=== PATIENT | male | born 1940 | race Caucasian/White ===

== ENCOUNTER 2021-05-04 17:07 | Inpatient (IN) | payer MEDICAID ==
[~2021-05-04] VITALS: Ht 165.1 cm; Wt 79.4 kg
--- NOTE | 2021-05-04 | NUR ---
MEAT CUTTER NOTES, A5 2345 RECEIVED 80 YEAR OLD MALE ADMITTED FROM ER DEPARTMENT, CODE STROKE IN ER DONE FOR THE PATIENT, PATIENT A/O X4 MONGOLIAN SPEAKING, ON 2LPM VIA NC WITH O2 96 % AT THIS TIME, NO SOB/ACUTE DISTRESS NOTED, PT ADMITTED UNDER MEDICALS SERVICES OF DR MINAL VAZQUEZ, WITH ADMITTING DX STROKE, WITH H/O OF STROKE PER PT 10 YEARS AGO, ON ER DOCUMENTATION STATES 5 YEARS AGO, NSR IN TELE MONITOR WITH HR 80S AT THIS TIME, PATIENT AFEBRILE, NO WEAKNESS NOTED, SLIGHTLY DROPPING IN RIGHT SIDE OF SMILE, PATIENT STATED BIANCA RIGHT LEG IS NUMB AFTER THE PRIOR STROKE, NO RESIDUAL NOTED, I DID NOT AMBULATE PATIENT BUT DID NEUROLOGICAL ASSESSMENT ASSESSMENT IN BED, SKIN INTACT, PATIENT AFEBRILE, WILL CONTINUE TO MONITOR CLOSELY AND DO NEUROLOGICAL CHECKS ORDERED, CALL LIGHT W/I REACH, BED LOCKED AND LOWEST POSITION, ORIENTED PAT TO ROOM AND SURROUNDINGS, EDUCATED TO USE THE CALL LIGHT FOR ASSISTANCE. Addendum: 05/05/21 at 0044 by ZULEMA STANFORD RN WRONG TIME ENTRY
--- NOTE | 2021-05-04 17:11 | NUR ---
TO ER BED 9, [id number] FRM HOME, FOUND IN THE GROUND, C/O R SIDED WEAKNESS. LKW 1200, AAOX3, BREATHING EVEN AND NON LABORED, CONNECTED TO MONITOR, MD AT BEDSIDE FOR EVAL
--- NOTE | 2021-05-04 17:20 | NUR ---
CALLED CODE STROKE
[2021-05-04] MEDS ORDERED: IOHEXOL-350 100 ML VIAL IV ONE (17:21)
[2021-05-04] MEDS ORDERED: IV NS 0.9% 250 ML IV ONE (17:23)
--- NOTE | 2021-05-04 17:26 | NUR ---
CALLED [phone] TELE [facility] TELE NEURO IS DR. MARTINEZ
--- NOTE | 2021-05-04 17:27 | NUR ---
TAKEN TO CT
[2021-05-04] MEDS ORDERED: CLOP75TA15 PO (17:33)
[2021-05-04] MEDS ORDERED: GLIP10TA11 PO (17:33)
[2021-05-04] MEDS ORDERED: CHOL200010 PO (17:33)
[2021-05-04] MEDS ORDERED: TAMS-12 PO (17:33)
[2021-05-04] MEDS ORDERED: METF-442 PO (17:33)
[2021-05-04] MEDS ORDERED: ATOR80TA PO (17:33)
--- NOTE | 2021-05-04 17:35 | NUR ---
DR LAW GO ON PHONE CALL WITH DR. MARTINEZ NEUROLOGY MD
--- NOTE | 2021-05-04 17:46 | NUR ---
COVID SWAB DONE AND SENT TO LAB
--- NOTE | 2021-05-04 18:22 | NUR ---
BROOKE SON [phone]. CALL FOR ANY UPDATE ALSO EMERGENCY CONTACT. SON STATES PT. HAS A HISTORY OF STROKE (5-6 YEARS AGO). PT IS DIABETIC. PT. INCONTINENT. [phone] ABHIJIT DAUGHTER.
[2021-05-04 18:33] LABS: BASOPHILS % (AUTO) 0.2 % (0.0-2.0); EOSINOPHILS % (AUTO) 0.1 % (0.0-6.0); HEMATOCRIT 45 % (39-51); HEMOGLOBIN 15.7 g/dL (13.5-17.5); LYMPHOCYTES # (AUTO) 0.6 K/uL (0.8-4.8); LYMPHOCYTES % (AUTO) 12.5 % (20.0-44.0); MEAN CORPUSCULAR HGB CONC 35 g/dl (31.0-36.0); MEAN CORPUSCULAR VOLUME 97 fL (80-96); MONOCYTES # (AUTO) 0.6 K/uL (0.1-1.30); MONOCYTES % (AUTO) 12.3 % (2.0-12.0); NEUTROPHILS # (AUTO) 3.4 K/uL (1.8-8.9); NEUTROPHILS % (AUTO) 74.9 % (43.0-81.0); PLATELET COUNT (AUTO) 89 K/uL (150-450); RED BLOOD CELL COUNT(AUTO) 4.69 MIL/uL (4.5-6.0); WHITE BLOOD COUNT (AUTO) 4.5 K/uL (4.3-11.0)
[2021-05-04 18:37] LABS: LYMPHOCYTES % (MANUAL) 15 % (16-48); MONOCYTES % (MANUAL) 15 % (0-11.0); NEUTROPHILS % (MANUAL) 70 (42-76)
[2021-05-04 18:43] LABS: CALCIUM, SERUM 8.1 mg/dL (8.5-10.1); CARBON DIOXIDE 24 mmol/L (21-32); CHLORIDE 98 mmol/L (98-107); CREATININE 1.1 mg/dL (0.6-1.3); GLUCOSE 228 mg/dL (74-106); POTASSIUM 3.8 mmol/L (3.5-5.1); SODIUM SERUM 133 mmol/L (136-145); UREA NITROGEN, BLOOD 19 mg/dL (7-18)
[2021-05-04] MEDS ORDERED: ASPIRIN 325 MG TABLET PO ONE (19:00)
[2021-05-04] MEDS ORDERED: ASPIRIN 325 MG TABLET ONE (19:07)
--- NOTE | 2021-05-04 22:37 | NUR ---
ASSIGNED TO 117-2
--- NOTE | 2021-05-04 23:05 | NUR ---
REPORT GIVEN TO DANK POOLE
[2021-05-05] VITALS: BP 159/85
--- NOTE | 2021-05-05 | NUR ---
SQUIRREL WORKER NOTES, A5 2345 RECEIVED 80 YEAR OLD MALE ADMITTED FROM ER DEPARTMENT, CODE STROKE IN ER DONE FOR THE PATIENT, PATIENT A/O X4 CYMRAES SPEAKING, ON 2LPM VIA NC WITH O2 96 % AT THIS TIME, NO SOB/ACUTE DISTRESS NOTED, PT ADMITTED UNDER MEDICALS SERVICES OF DR MINAL VAZQUEZ, WITH ADMITTING DX STROKE, WITH H/O OF STROKE PER PT 10 YEARS AGO, ON ER DOCUMENTATION STATES 5 YEARS AGO, NSR IN TELE MONITOR WITH HR 80S AT THIS TIME, PATIENT AFEBRILE, NO WEAKNESS NOTED, SLIGHTLY DROPPING IN RIGHT SIDE OF SMILE, PATIENT STATED BIANCA RIGHT LEG IS NUMB AFTER THE PRIOR STROKE, NO RESIDUAL NOTED, I DID NOT AMBULATE PATIENT BUT DID NEUROLOGICAL ASSESSMENT ASSESSMENT IN BED, SKIN INTACT, PATIENT AFEBRILE, WILL CONTINUE TO MONITOR CLOSELY AND DO NEUROLOGICAL CHECKS ORDERED, CALL LIGHT W/I REACH, BED LOCKED AND LOWEST POSITION, ORIENTED PAT TO ROOM AND SURROUNDINGS, EDUCATED TO USE THE CALL LIGHT FOR ASSISTANCE.
--- NOTE | 2021-05-05 00:02 | NUR ---
PATIENT TRANSFERRED TO [facility]
--- NOTE | 2021-05-05 00:29 | NUR ---
RN NOTES, ASKED MINAL FLIGHT TECHNICIAN THAT PER ER DR NOTES, PERMISSIVE HYPERTENSION IS ALLOW WELL PATIENT NPO TILL SWALLOW EVALUATION DONE, IF SHE WANTS TO CONTINUE THIS AND WHAT PARAMETERS FOR BP SHE WANTS, SHE REPLIED WITH ORDERS TO CONT PT IN CARDIAC DIET AFTER SWALLOW EVALUATION AT BEDSIDE NOW, AND PARAMETER FOR SBP CAN GO UP TO 180, NOTED AND CARRIED OUT, INFORMED HER THAT PT IS DIABETIC TOO AND REPLIED WITH ORDER FOR RISS ACHS MODERATE, ALL ORDERS NOTED AND CARRIED OUT.
[2021-05-05] MEDS ORDERED: DEXTROSE 50%-WATER 50 ML DISP.SYRIN IV PRN (01:00)
[2021-05-05] MEDS: ENOXAPARIN SODIUM 40 MG/0.4 ML DISP.SYRIN SQ SCH ×2 (01:16→21:16)
[2021-05-05] MEDS: BLOOD SUGAR DIAGNOSTIC 1 EACH STRIP VI SCH ×5 (02:04→21:17)
[2021-05-05] MEDS: *INSULIN REGULAR(HUMULIN R)HUM 100 UNIT/ML VIAL SQ PRN ×2 (02:06→21:32)
--- NOTE | 2021-05-05 06:03 | NUR ---
TEXTED DR. MIX FOR MRI APPROVAL.
--- NOTE | 2021-05-05 07:03 | NUR ---
PT SLEEPING AT THIS TIME, A/O X4 , NO CHANGE IN LOC DURING THE REST OF MY SHIFT, NO NEUROLOGICAL DEFICITS NOTED, NO CHANGE IN CONDITION DURING MY SHIFTY, ON 2LPM VIA NC WITH , NO SOB/ACUTE DISTRESS NOTED, NSR IN TELE MONITOR WITH HR 80S AT THIS TIME, PATIENT AFEBRILE, CALL LIGHT W/I REACH, BED LOCKED AND LOWEST POSITION, WILL ENDORSE CONTINUITY OF CARE TO ONCOMING NURSE.
--- NOTE | 2021-05-05 07:30 | NUR ---
GRADES 1 THROUGH 6 TEACHER OPENING NOTES RECEIVED PATIENT ON BED AWAKE AND A/O X4. ON O2 AT 4LPM VIA NASAL CANNULA TOLERATING WELL. NO SOB NOTED. NOT IN DISTRESS. WITH NO COMPLAINTS OF PAIN OR DISCOMFORT AT THIS TIME. ON TELE MONITOR CURRENTLY READING SINUS RHYTHM AT 91BPM. WITH IV ACCESS AT LEFT HAND G20 AND AT RIGHT HAND G18 SALINE LOCKED, PATENT AND INTACT. SAFETY MEASURES IN PLACED. ON DROPLET PRECAUTION. CALL LIGHT WITHIN REACH. BED ON LOWEST LOCKED POSITION, SIDE RAILS UP X2. WILL CONTINUE TO MONITOR.
[2021-05-05 07:31] LABS: BASOPHILS % (AUTO) 0.2 % (0.0-2.0); EOSINOPHILS % (AUTO) 0.1 % (0.0-6.0); HEMATOCRIT 45 % (39-51); HEMOGLOBIN 15.6 g/dL (13.5-17.5); LYMPHOCYTES # (AUTO) 0.6 K/uL (0.8-4.8); LYMPHOCYTES % (AUTO) 15.5 % (20.0-44.0); MEAN CORPUSCULAR HGB CONC 35 g/dl (31.0-36.0); MEAN CORPUSCULAR VOLUME 96 fL (80-96); MONOCYTES # (AUTO) 0.5 K/uL (0.1-1.30); MONOCYTES % (AUTO) 11.1 % (2.0-12.0); NEUTROPHILS # (AUTO) 3.1 K/uL (1.8-8.9); NEUTROPHILS % (AUTO) 73.1 % (43.0-81.0); PLATELET COUNT (AUTO) 84 K/uL (150-450); RED BLOOD CELL COUNT(AUTO) 4.69 MIL/uL (4.5-6.0); WHITE BLOOD COUNT (AUTO) 4.2 K/uL (4.3-11.0)
[2021-05-05 07:51] LABS: CALCIUM, SERUM 8.1 mg/dL (8.5-10.1); POTASSIUM 3.7 mmol/L (3.5-5.1)
[2021-05-05] MEDS ORDERED: ASPIRIN EC 325 MG TABLET.DR PO SCH (09:00)
--- NOTE | 2021-05-05 09:00 | NUR ---
MRI APPROVED, SWITCHING OPERATOR NOTIFIED
[2021-05-05] MEDS: PANTOPRAZOLE 40 MG TABLET.DR PO SCH (09:55)
[2021-05-05] MEDS: INSULIN REGULAR, HUMAN 100 UNIT/ML 3 ML VIAL SQ PRN ×3 (10:40→18:36)
--- NOTE | 2021-05-05 11:14 | NUR ---
SS Consult: SS consult for CVA. Pt. Is a 80-year-old male. Pt. is Tajik speaking, CARLOS nurse translated. Pt. demonstrates adequate insight to the reason for hospitalization. Per pt., he was brought to hospital by ambulance due to generalized weakness. Pt. was oriented x3, alert, and cooperative. During interview, pt. was capable of following directions, made appropriate eye-contact, and appeared groomed. Pt.s speech was at a normal rate. Pt.s mood was elevated. JOSE MANUEL explored pt.s hx of mental health and substance abuse. Pt. reported no hx of mental health, substance abuse, suicidal or homicidal ideation. Pt. denies auditory hallucinations, visual hallucinations, paranoia, or delusions. SW explored pt.s living situation. Per pt., he lives with his daughter [[id number] [place] [address]]. Per pt., his daughter works most of the time and can care for him when she is at home. Pt. stated that he feels supported by his daughter. JOSE MANUEL explored pt.s ADLs and DMEs. Pt. was independent with his ADLs and was ambulatory before he was hospitalized. Pt. stated that the last time he had a stroke was about 10 years ago, pt. has hx of strokes. Per pt., he was at home and started to feel weakness in his right leg and fell. His daughter found him on the floor and called the ambulance. Pt. stated he has pain on his right side hip. Plan: JOSE MANUEL provided available resources and pt. accepted. SW screen pt. with the PHQ9 and he scored a 3 [none-minimal]. A psych consult is not needed. Resources Provided: Stroke Empowerment
[2021-05-05 12:18] LABS: CHOLESTEROL 110 mg/dL (<200); HDL CHOLESTEROL 34 mg/dL (40-60); LDL 65 mg/dL (0-99); TRIGLYCERIDES 81 mg/dL (30-150)
[2021-05-05 13:49] LABS: ALBUMIN 3.3 g/dL (3.4-5.0); BILIRUBIN,DIRECT 0.4 mg/dL (0.0-0.2); BILIRUBIN,TOTAL 0.9 mg/dL (0.2-1.0); TOTAL PROTEIN, SERUM 6.3 g/dL (6.4-8.2)
[2021-05-05] MEDS: DEXAMETHASONE SOD PHOSPHATE 10 MG/ML VIAL IV SCH (15:54)
[2021-05-05] MEDS: CLOPIDOGREL BISULFATE 75 MG TABLET PO SCH (15:55)
[2021-05-05] MEDS ORDERED: GADOTERATE MEGLUMINE 5 MMOL/10 ML VIAL IV ONE (18:31)
--- NOTE | 2021-05-05 19:00 | NUR ---
SOLOIST DANCER CLOSING NOTES PATIENT ON BED AWAKE AND A/O X4. ON O2 AT 4LPM VIA NASAL CANNULA TOLERATING WELL. NO SOB NOTED. NOT IN DISTRESS. WITH NO COMPLAINTS OF PAIN OR DISCOMFORT AT THIS TIME. ON TELE MONITOR CURRENTLY READING SINUS RHYTHM AT 91BPM. WITH IV ACCESS AT LEFT HAND G20 AND AT RIGHT HAND G18 SALINE LOCKED, PATENT AND INTACT. SAFETY MEASURES IN PLACED. ON DROPLET PRECAUTION. CALL LIGHT WITHIN REACH. BED ON LOWEST LOCKED POSITION, SIDE RAILS UP X2. WILL ENDORSE TO NEXT SHIFT FOR VERENA.
--- NOTE | 2021-05-05 19:55 | NUR ---
GROUND SUPPORT EQUIPMENT FITTER OPENING NOTES PATIENT ON BED AWAKE AND A/O X4. MOHAWK SPEAKING. ON O2 AT 4LPM VIA NASAL CANNULA TOLERATING WELL. NO SOB NOTED. NOT IN DISTRESS. WITH NO COMPLAINTS OF PAIN OR DISCOMFORT AT THIS TIME. ON TELE MONITOR SINUS RHYTHM AT 89. WITH IV ACCESS AT LEFT HAND G20 AND AT RIGHT HAND G18 SALINE LOCKED, PATENT AND INTACT. SAFETY MEASURES IN PLACED. AND ALL ISOLATION PRECAUTIONS TAKEN. CALL LIGHT WITHIN REACH. BED ON LOWEST LOCKED POSITION, SIDE RAILS UP X2.
[2021-05-05 20:00] VITALS: BP 132/68
--- NOTE | 2021-05-05 20:32 | NUR ---
TOOLMAKER GRADE THREE NOTE CONTACTED FOR PATIENTS FEVER OF 99.2. ORDERED TYLENOL 600MG PO Q6 PRN. ORDER NOTED AND FOLLOWED.
[2021-05-05] MEDS ORDERED: ACETAMINOPHEN 325 MG TABLET PO PRN (21:00)
--- NOTE | 2021-05-05 21:34 | NUR ---
bs 365 - 10 units per sliding scale
[2021-05-06] VITALS: BP 120/72
[2021-05-06 04:00] VITALS: BP 156/91
--- NOTE | 2021-05-06 06:20 | NUR ---
RN NOTE PATIENT REMAINED IN STABLE CONDITION OVER NIGHT, NEURO ASSESSMENTS DONE ORDERED. ALL MEDICATIONS GIVEN ORDERED. PATIENT HAS BEEN NPO SINCE MIDNIGHT DUE TO US OF ABDOMEN THAT IS SCHEDULED IN THE MORNING PER DOCTORS ORDERS.BED LOCKED, ENVIRONMENTAL SAFETY MEASURES ENFORCED, CALL LIGHT WITHIN REACH. WILL ENDORSE PLAN OF CARE TO AM NURSE.
[2021-05-06 08:00] VITALS: BP 127/79
[2021-05-06 08:07] LABS: IMMUNOGLOBULIN A, SERUM 270 mg/dL (61-437); IMMUNOGLOBULIN G, SERUM 797 mg/dL (603-1613); IMMUNOGLOBULIN M, SERUM 59 mg/dL (15-143)
[2021-05-06 08:17] LABS: BASOPHILS % (AUTO) 0.1 % (0.0-2.0); HEMATOCRIT 46 % (39-51); HEMOGLOBIN 16.3 g/dL (13.5-17.5); LYMPHOCYTES # (AUTO) 0.6 K/uL (0.8-4.8); LYMPHOCYTES % (AUTO) 14.4 % (20.0-44.0); MEAN CORPUSCULAR HGB CONC 35 g/dl (31.0-36.0); MEAN CORPUSCULAR VOLUME 96 fL (80-96); MONOCYTES # (AUTO) 0.5 K/uL (0.1-1.30); MONOCYTES % (AUTO) 11.5 % (2.0-12.0); NEUTROPHILS # (AUTO) 2.9 K/uL (1.8-8.9); PLATELET COUNT (AUTO) 86 K/uL (150-450); RED BLOOD CELL COUNT(AUTO) 4.82 MIL/uL (4.5-6.0); WHITE BLOOD COUNT (AUTO) 3.9 K/uL (4.3-11.0)
[2021-05-06] MEDS: PANTOPRAZOLE 40 MG TABLET.DR PO SCH (08:27)
[2021-05-06] MEDS: DEXAMETHASONE SOD PHOSPHATE 10 MG/ML VIAL IV SCH (08:27)
[2021-05-06] MEDS: BLOOD SUGAR DIAGNOSTIC 1 EACH STRIP VI SCH ×4 (08:29→21:46)
[2021-05-06] MEDS: CLOPIDOGREL BISULFATE 75 MG TABLET PO SCH (08:29)
[2021-05-06 08:40] LABS: CALCIUM, SERUM 8.7 mg/dL (8.5-10.1); MAGNESIUM 2.3 mg/dL (1.8-2.4); PHOSPHORUS 3.8 mg/dL (2.5-4.9); POTASSIUM 3.9 mmol/L (3.5-5.1)
[2021-05-06 10:01] LABS: LYMPHOCYTES % (MANUAL) 10 % (16-48); MONOCYTES % (MANUAL) 20 % (0-11.0); NEUTROPHILS % (MANUAL) 70 (42-76)
[2021-05-06 12:00] VITALS: BP 127/79
[2021-05-06] MEDS: INSULIN REGULAR, HUMAN 100 UNIT/ML 3 ML VIAL SQ PRN ×2 (12:41→17:37)
[2021-05-06 16:00] VITALS: BP 132/74
--- NOTE | 2021-05-06 19:20 | NUR ---
RN NOTES: RECEIVED AWAKE ON BED, ON SEMI FOWLERS POSITION A/OX2-3, YI SPEAKING, TALK LITTLE TAIWANESE ABLE TO MAKE NEEDS KNOWN, RIGHT SIDE WEAKNESS, ON O2 AT 4 L/MIN VIA NC SPO2-97%, NO SOB OR SIGN OF RESPIRATORY DISTRESS, ON SPOTTER SR-80,RFA G#22 INTACT AND PATENT, ON BED REST BUT PER ENDORSEMENT HE GETS UP IN BETWEEN.FALL SAFETY AND ASPIRATION PRECAUTION OBSERVED. -BED LOW AND LOCKED, KEPT CALL LIGHT WITHIN EASY REACH, ORIENTED TO UNIT AND STAFF.
--- NOTE | 2021-05-06 19:33 | NUR ---
RN NOTE PT RESTING IN BED, ALERT AND VERBALLY RESPONSIVE. NOT IN RESPIRATORY DISTRESS. ON O2 VIA NC @2L WITH O2 SAT OF 96. NO COMPLAINTS OF PAIN AND DISCOMFORT. NO CHANGES IN LOC, NEURO CHECKS DONE AND RECORDED. V/S WNL. WILL CONTINUE TO MONITOR. DUE MEDICATIONS TAKEN, ALL NEEDS ATTENDED. SAFETY MEASURES FOLLOWED.
--- NOTE | 2021-05-06 19:41 | NUR ---
RN NOTE PT RESTING IN BED, ALERT AND VERBALLY RESPONSIVE. ON O2 VIA NC AT 3L, NO SOB NOTED. ALL DUE MEDICATIONS GIVEN. NEEDS ATTENDED. SAFETY MEASURES FOLLOWED. VITALS WNL. Addendum: 05/06/21 at 1943 by SUHAS FUNEZ RN YOEL RIDDLE
[2021-05-06 20:00] VITALS: BP 123/53
[2021-05-06] MEDS: ATORVASTATIN 40 MG TABLET PO SCH (21:20)
[2021-05-06] MEDS: ENOXAPARIN SODIUM 40 MG/0.4 ML DISP.SYRIN SQ SCH (21:37)
[2021-05-06] MEDS: *INSULIN REGULAR(HUMULIN R)HUM 100 UNIT/ML VIAL SQ PRN (21:47)
--- NOTE | 2021-05-06 21:48 | NUR ---
RN NOTES: BLOOD SUGAR -226, INSULIN GIVEN PER SCALE.WILL CONTINUE TO MONITOR FOR SIGN OF HYPER/HYPOGLYCEMIA.
[2021-05-06] MEDS ORDERED: Medication Not On Formulary EA (Atorvastatin Calcium (Lipitor) 80 MG) PO SCH (22:00)
--- NOTE | 2021-05-06 23:57 | NUR ---
RN NOTES: AWAKE IN BETWEEN, ASSISTED TO PASS URINE IN THE URINAL DARK YELLOWISH/LIGHT ORANGE IN COLOR URINE, ENCOURAGE FLUIDS TOLERATED, HE DRINKS LITTLE BY LITTLE ONLY.
[2021-05-07] VITALS: BP 121/72
--- NOTE | 2021-05-07 02:26 | NUR ---
RN NOTES: FEVERISH AT AROUND 0200, SPORTS UMPIRE NOTFIED HE HAD ALSO URINARY FREQUENCY AND PASSING CONCENTRATED URINE, SPORTS UMPIRE GAVE ORDER FOR PRN FOR FEVER AND TO SEND UA/CS, SPECIMEN COLLECTED. Addendum: 05/07/21 at 0411 by NANCY RODRIGUEZ RN ADDED NOTES: SANDY/CHITO NOTIFIED SPECIMEN READY FOR PATTERNMAKER PLASTER AND PLASTIC.
[2021-05-07] MEDS ORDERED: ACETAMINOPHEN 650 MG/20.3 ML UDC NG PRN (02:30)
[2021-05-07] MEDS ORDERED: ACETAMINOPHEN 650 MG/20.3 ML UDC PO PRN (02:30)
--- NOTE | 2021-05-07 03:00 | NUR ---
RN NOTES: ABLE TO SLEEP AND REST, TEMP RECHECKED-98.9, AFEBRILE.
[2021-05-07 04:00] VITALS: BP 126/75
--- NOTE | 2021-05-07 06:36 | NUR ---
RN NOTES: MORNING CARE DONE,REMAINS IN SINUS RHYTHM- RATE-99, AFEBRILE, ENCOURAGE TO DRINK FLUIDS TOLERATED, NO SOB, URINE COLLECTED BY FIELD OPERATIONS COORDINATOR AT 0630, F/U WITH NEURO, ENDORSED FOR CONTINUITY OF CARE.
--- NOTE | 2021-05-07 07:30 | NUR ---
RN NOTES: RECEIVED AWAKE ON BED, ON SEMI FOWLERS POSITION A/OX2-3, [place] SPEAKING, TALK LITTLE CITIZEN OF [place] ABLE TO MAKE NEEDS KNOWN, RIGHT SIDE WEAKNESS, ON O2 AT 4 L/MIN VIA NC SPO2-97%, NO SOB OR SIGN OF RESPIRATORY DISTRESS, ON BULK SYSTEM OPERATOR SR-80,RFA G#22 INTACT AND PATENT, ON BED REST BUT PER ENDORSEMENT HE GETS UP IN BETWEEN.FALL SAFETY AND ASPIRATION PRECAUTION OBSERVED. BED LOW AND LOCKED, KEPT CALL LIGHT WITHIN EASY REACH, WILL VERENA
[2021-05-07] MEDS: BLOOD SUGAR DIAGNOSTIC 1 EACH STRIP VI SCH ×4 (07:55→21:22)
[2021-05-07] MEDS: PANTOPRAZOLE 40 MG TABLET.DR PO SCH (07:55)
[2021-05-07 08:00] VITALS: BP 140/79
[2021-05-07] MEDS: CLOPIDOGREL BISULFATE 75 MG TABLET PO SCH (08:42)
[2021-05-07] MEDS: DEXAMETHASONE SOD PHOSPHATE 10 MG/ML VIAL IV SCH (08:42)
[2021-05-07] MEDS: INSULIN REGULAR, HUMAN 100 UNIT/ML 3 ML VIAL SQ PRN ×4 (08:45→21:24)
[2021-05-07 12:00] VITALS: BP 145/76
[2021-05-07 16:00] VITALS: BP 140/70
--- NOTE | 2021-05-07 18:26 | NUR ---
RN NOTES: PT REMAIN AWAKE ON BED, ON SEMI FOWLERS POSITION A/OX2-3, ENGLISH SPEAKING, TALK LITTLE CITIZEN OF [place] ABLE TO MAKE NEEDS KNOWN, RIGHT SIDE WEAKNESS, ON O2 AT 4 L/MIN VIA NC SPO2-97%, NO SOB OR SIGN OF RESPIRATORY DISTRESS, ON FACING BASTER SR-80,RFA G#22 INTACT AND PATENT, ON BED REST BUT PER ENDORSEMENT HE GETS UP IN BETWEEN.FALL SAFETY AND ASPIRATION PRECAUTION OBSERVED. BED LOW AND LOCKED, KEPT CALL LIGHT WITHIN EASY REACH, WILL ENDORSE TO NOC SHIFT.
[2021-05-07 20:00] VITALS: BP 118/65
[2021-05-07] MEDS: ENOXAPARIN SODIUM 40 MG/0.4 ML DISP.SYRIN SQ SCH (21:19)
[2021-05-07] MEDS: ATORVASTATIN 40 MG TABLET PO SCH (21:22)
--- NOTE | 2021-05-07 21:24 | NUR ---
RN NOTE BS 231. GIVEN 4 UNITS REG ISS PER COVERAGE
[2021-05-07] MEDS: *INSULIN REGULAR(HUMULIN R)HUM 100 UNIT/ML VIAL SQ PRN (22:48)
[2021-05-07 23:29] LABS: BILIRUBIN,URINE NEGATIVE (NEGATIVE); COLOR,URINE YELLOW (YELLOW); LEUKOCYTE ESTERASE ,URINE NEGATIVE (NEGATIVE); NITRITE, URINE NEGATIVE (NEGATIVE); PROTEIN,URINE TRACE mg/dl (NEGATIVE); UGLUCOSE >=1000 mg/dL (NEGATIVE)
[2021-05-07 23:57] LABS: BACTERIA,URINE None seen /HPF (None Seen); RBC,URINE 0-2 /HPF (0-2); SQUAMOUS EPITHELIAL CELL,UR Few /HPF (None Seen); WBC,URINE 0-2 /HPF (0-3)
[2021-05-08] VITALS: BP 135/77
[2021-05-08 04:00] VITALS: BP 121/67
[2021-05-08] MEDS: INSULIN REGULAR, HUMAN 100 UNIT/ML 3 ML VIAL SQ PRN ×3 (06:03→17:21)
[2021-05-08 06:06] LABS: *SPE A/G RATIO 1.1 (0.7-1.7); *SPE ALPHA-1-GLOBULIN 0.2 g/dL (0.0-0.4); *SPE ALPHA-2-GLOBULIN 0.9 g/dL (0.4-1.0); *SPE M-SPIKE Not Observed g/dL (Not Observed)
[2021-05-08] MEDS: BLOOD SUGAR DIAGNOSTIC 1 EACH STRIP VI SCH ×4 (06:14→22:06)
[2021-05-08 07:24] LABS: BASOPHILS % (AUTO) 0.1 % (0.0-2.0); HEMATOCRIT 43 % (39-51); HEMOGLOBIN 15.1 g/dL (13.5-17.5); LYMPHOCYTES # (AUTO) 0.6 K/uL (0.8-4.8); LYMPHOCYTES % (AUTO) 10.4 % (20.0-44.0); MEAN CORPUSCULAR HGB CONC 35 g/dl (31.0-36.0); MEAN CORPUSCULAR VOLUME 96 fL (80-96); MONOCYTES # (AUTO) 0.6 K/uL (0.1-1.30); NEUTROPHILS # (AUTO) 4.3 K/uL (1.8-8.9); NEUTROPHILS % (AUTO) 78.5 % (43.0-81.0); PLATELET COUNT (AUTO) 90 K/uL (150-450); RED BLOOD CELL COUNT(AUTO) 4.47 MIL/uL (4.5-6.0); WHITE BLOOD COUNT (AUTO) 5.4 K/uL (4.3-11.0)
[2021-05-08 07:39] LABS: CALCIUM, SERUM 7.9 mg/dL (8.5-10.1); CREATININE 1.1 mg/dL (0.6-1.3); MAGNESIUM 1.9 mg/dL (1.8-2.4); POTASSIUM 3.5 mmol/L (3.5-5.1)
--- NOTE | 2021-05-08 07:41 | NUR ---
RN NOTES: RECEIVED AWAKE ON BED,A/OX2-3 JAPANESE SPEAKING, NO COMPLAINTS OF PAIN OR SOB AT THIS TIME WITH RIGHT SIDED WEAKNESS, NC @ 4lLPM, IV RIGHT FOREARM, CONTINENT USING URINAL AT BEDSIDE WITH BED ALARM, NO SOB OR SIGN OF RESPIRATORY DISTRESS, ON HOTEL SECURITY OFFICER,BED LOW AND LOCKED, KEPT CALL LIGHT WITHIN EASY REACH,
[2021-05-08 08:00] VITALS: BP 137/76
[2021-05-08] MEDS: CLOPIDOGREL BISULFATE 75 MG TABLET PO SCH (08:05)
[2021-05-08] MEDS: PANTOPRAZOLE 40 MG TABLET.DR PO SCH (08:05)
[2021-05-08] MEDS: DEXAMETHASONE SOD PHOSPHATE 10 MG/ML VIAL IV SCH (08:06)
[2021-05-08 10:07] LABS: *ANA ANTI-CENTROMERE B AB <0.2 AI (0.0-0.9); *ANA ANTI-DNA(DS) AB, QN <1 IU/mL (0-9); *ANA ANTI-JO-1 <0.2 AI (0.0-0.9); *ANA ANTICHROMATIN ANTIBODY <0.2 AI (0.0-0.9); *ANA RNP ANTIBODIES <0.2 AI (0.0-0.9); *ANA SJOGREN'S ANTI-SS-A <0.2 AI (0.0-0.9); *ANA SJOGREN'S ANTI-SS-B <0.2 AI (0.0-0.9); *ANAANTI-SCLERODERMA-70 AB <0.2 AI (0.0-0.9); *ANASMITH AB <0.2 AI (0.0-0.9)
[2021-05-08 12:00] VITALS: BP 126/71
--- NOTE | 2021-05-08 13:18 | NUR ---
RN NOTE PATIENT DESATURATED TO 86% ON ROOM AIR AND WAS PLACE ON 02 AT 3L NC.
[2021-05-08 15:05] LABS: BILIRUBIN,DIRECT 0.4 mg/dL (0.0-0.2); BILIRUBIN,TOTAL 0.9 mg/dL (0.2-1.0); TOTAL PROTEIN, SERUM 6.3 g/dL (6.4-8.2)
[2021-05-08 15:40] LABS: C-REACTIVE PROTEIN 2.8 mg/dL (0.0-0.9); FERRITIN 1420 ng/mL (8-388)
[2021-05-08 16:00] VITALS: BP 139/82
[2021-05-08] MEDS ORDERED: REMDESIVIR (CHARGED) 200 MG, *LOADING DOSE 1 EA in IV NS 0.9% 210 ML IV ONE (17:00)
--- NOTE | 2021-05-08 18:56 | NUR ---
RN CLOSING NOTE PATIENT AWAKE ON BED,A/OX2-3 [place] SPEAKING, NO COMPLAINTS OF PAIN OR SOB AT THIS TIME WITH RIGHT SIDED WEAKNESS, NC @ 4lLPM, IV RIGHT FOREARM, CONTINENT USING URINAL AT BEDSIDE. PATIENT STARTED ON REMDESIVIR TODAY, SPOKE WITH DAUGHTER ABHIJIT [phone] GAVE UPDATE. SAFETY MEASURE IN PLACE BED LOW AND LOCKED, KEPT CALL LIGHT WITHIN EASY REACH WILL ENDORSE TO NIGHT NURSE FOR VERENA.
[2021-05-08 20:00] VITALS: BP 135/68
[2021-05-08] MEDS: ATORVASTATIN 40 MG TABLET PO SCH (21:47)
[2021-05-08] MEDS: ENOXAPARIN SODIUM 40 MG/0.4 ML DISP.SYRIN SQ SCH (21:50)
[2021-05-08] MEDS: *INSULIN REGULAR(HUMULIN R)HUM 100 UNIT/ML VIAL SQ PRN (22:06)
[2021-05-09] VITALS: BP 138/72
--- NOTE | 2021-05-09 01:59 | NUR ---
NOTED PATIENT WITH O2 IN HIGH 80S, ON 5LPM NC, STILL NOTED WITH O2 IN 87-89%, PLACED PATIENT IN SIMPLE MASK AT 8LPM STILL NOTED WITH O2 91-92%, TITRATED TO 10LPM VIA SIMPLE MASK O2 94-95%, WILL CONTINUE TO MONITOR CLOSELY.
[2021-05-09 04:00] VITALS: BP 134/78
--- NOTE | 2021-05-09 06:59 | NUR ---
PATIENT ON NRM 15LPM AT THIS TIME, NOTED WITH SOB AND O2 89-90 ON SIMPLE MASK 10LPM, SO SWITCHED TO NRM 15L, WITH 02 90-94%,, STABLE VS, BED LOCKED AN DLOWEST POSITION, S/R OF BED X2 UP, WILL ENDORSE CONTINUITY OF CARE TO ONCOMING NURSE.
[2021-05-09 07:05] LABS: BASOPHILS % (AUTO) 0.1 % (0.0-2.0); HEMATOCRIT 45 % (39-51); HEMOGLOBIN 15.9 g/dL (13.5-17.5); LYMPHOCYTES # (AUTO) 0.8 K/uL (0.8-4.8); LYMPHOCYTES % (AUTO) 11.2 % (20.0-44.0); MEAN CORPUSCULAR HGB CONC 36 g/dl (31.0-36.0); MEAN CORPUSCULAR VOLUME 95 fL (80-96); MONOCYTES # (AUTO) 0.7 K/uL (0.1-1.30); NEUTROPHILS # (AUTO) 5.3 K/uL (1.8-8.9); NEUTROPHILS % (AUTO) 78.7 % (43.0-81.0); PLATELET COUNT (AUTO) 98 K/uL (150-450); RED BLOOD CELL COUNT(AUTO) 4.71 MIL/uL (4.5-6.0); WHITE BLOOD COUNT (AUTO) 6.7 K/uL (4.3-11.0)
[2021-05-09 07:08] LABS: ALBUMIN 2.8 g/dL (3.4-5.0); BILIRUBIN,DIRECT 0.4 mg/dL (0.0-0.2); CALCIUM, SERUM 8.1 mg/dL (8.5-10.1); POTASSIUM 3.7 mmol/L (3.5-5.1); TOTAL PROTEIN, SERUM 6.6 g/dL (6.4-8.2)
[2021-05-09 08:00] VITALS: BP 141/69
[2021-05-09] MEDS: BLOOD SUGAR DIAGNOSTIC 1 EACH STRIP VI SCH ×4 (08:40→22:37)
[2021-05-09] MEDS: DEXAMETHASONE SOD PHOSPHATE 10 MG/ML VIAL IV SCH (08:42)
[2021-05-09] MEDS: PANTOPRAZOLE 40 MG TABLET.DR PO SCH (08:42)
[2021-05-09] MEDS: CLOPIDOGREL BISULFATE 75 MG TABLET PO SCH (08:43)
[2021-05-09] MEDS: *INSULIN REGULAR(HUMULIN R)HUM 100 UNIT/ML VIAL SQ PRN ×4 (08:51→22:38)
--- NOTE | 2021-05-09 09:26 | NUR ---
CLINICAL INFORMATION SYSTEMS DIRECTOR OPENING NOTES RECEIVED AWAKE ON BED, A/OX2-3, ON SEMI FOWLERS POSITION, CROATIAN SPEAKING, SPEAKS LITTLE [place] ABLE TO MAKE NEEDS KNOWN. RIGHT SIDE WEAKNESS SECONDARY TO STROKE, ON O2 AT 10 L/MIN VIA NON-REBREATHER MASK SPO2 90-95%, NO SOB OR SIGNS OF RESPIRATORY DISTRESS, ON BOOK REVIEWER SR-70 TO 80,RFA G#22 INTACT AND PATENT, FLUSHES WELL. FALL SAFETY AND ASPIRATION PRECAUTION OBSERVED. BED IN LOWEST POSITION AND LOCKED, KEPT CALL LIGHT WITHIN EASY REACH, WILL CONTINUE TO MONITOR
[2021-05-09 12:00] VITALS: BP 133/73
--- NOTE | 2021-05-09 14:57 | NUR ---
repeat ptt is greater than 170,hold heparin and md notified.
--- NOTE | 2021-05-09 15:04 | NUR ---
addendum wrong entry for margaretran notes.
[2021-05-09 16:00] VITALS: BP 129/69
[2021-05-09] MEDS: REMDESIVIR (CHARGED) 100 MG in IV NS 0.9% 100 ML IV SCH (17:06)
--- NOTE | 2021-05-09 18:55 | NUR ---
DIGITAL SALES DIRECTOR CLOSING NOTE PATIENT AWAKE ON BED,A/OX2-3 MACEDONIAN SPEAKING, NO COMPLAINTS OF PAIN OR SOB AT THIS TIME WITH MINIMAL RIGHT SIDED WEAKNESS, NBM @ 15 LPM, IV RIGHT FOREARM FLUSHES WELL, CONTINENT USING URINAL AT BEDSIDE. PATIENT ON SECOND DOSE OF REMDESIVIR TODAY. NO SIGNS OF DISTRESS OR CHEST DISCOMFORT AT THIS MOMENT. ALL MEDICATIONS ADMINISTERED ORDERED. SAFETY MEASURE IN PLACE BED LOW AND LOCKED, KEPT CALL LIGHT WITHIN EASY REACH WILL ENDORSE TO NIGHT NURSE FOR VERENA.
[2021-05-09 20:00] VITALS: BP 131/78
[2021-05-09] MEDS: ATORVASTATIN 40 MG TABLET PO SCH (21:40)
[2021-05-09] MEDS: ENOXAPARIN SODIUM 40 MG/0.4 ML DISP.SYRIN SQ SCH (21:44)
[2021-05-09] MEDS: ZOLPIDEM TARTRATE 5 MG TABLET PO PRN (23:43)
[2021-05-10] VITALS: BP 138/84
--- NOTE | 2021-05-10 02:45 | NUR ---
RN NOTES, RECEIVED ORDER FOR HIGH FLOE FOR PT DUE TO CONSISTENTLY O2 SAT IN LOW TO MID 80%, RR 36, ON NRM, ORDER NOTED AND CARRIED OUT.
--- NOTE | 2021-05-10 03:00 | NUR ---
HIGH FLOW O2 NOT INITIATED, O2 IMPROVED TO 89-92%, WILL CONT TO MONITOR.
[2021-05-10 06:00] VITALS: BP 132/70
[2021-05-10 07:26] LABS: BASOPHILS % (AUTO) 0.1 % (0.0-2.0); HEMATOCRIT 45 % (39-51); LYMPHOCYTES # (AUTO) 0.6 K/uL (0.8-4.8); MEAN CORPUSCULAR HGB CONC 36 g/dl (31.0-36.0); MEAN CORPUSCULAR VOLUME 94 fL (80-96); MONOCYTES # (AUTO) 0.7 K/uL (0.1-1.30); MONOCYTES % (AUTO) 8.3 % (2.0-12.0); NEUTROPHILS # (AUTO) 7.5 K/uL (1.8-8.9); NEUTROPHILS % (AUTO) 84.6 % (43.0-81.0); PLATELET COUNT (AUTO) 124 K/uL (150-450); RED BLOOD CELL COUNT(AUTO) 4.76 MIL/uL (4.5-6.0); WHITE BLOOD COUNT (AUTO) 8.9 K/uL (4.3-11.0)
--- NOTE | 2021-05-10 07:30 | NUR ---
PATIENT ENDORSED TO MANI WEEMS FOR CONTINUATION OF CARE, PT CONT ON NRM AT 15LPM AFTER DESATURATION EPISODE CALLED SOFY AND GET ORDER FOR HIGH FLOW, BUT PATIENT O2 WENT UP TO 92% AND IS BEING THERE 88-92%, NO HIGH FLOW FOR NOW.
[2021-05-10 07:38] LABS: ALBUMIN 2.7 g/dL (3.4-5.0); BILIRUBIN,DIRECT 0.5 mg/dL (0.0-0.2); BILIRUBIN,TOTAL 1.1 mg/dL (0.2-1.0); CALCIUM, SERUM 8.1 mg/dL (8.5-10.1); POTASSIUM 3.7 mmol/L (3.5-5.1); TOTAL PROTEIN, SERUM 6.4 g/dL (6.4-8.2)
--- NOTE | 2021-05-10 07:40 | NUR ---
DIRECTOR OF ATHLETICS OPENING NOTES RECEIVED PATIENT IN BED, AWAKE, A/O X4. PATIENT ON OXYGEN THERAPY AT 15 LPM VIA NRB. TELE MONITOR WITH A CURRENT READING OF SR 82. IV ACCESS RFA G # 22 AND L HAND G #20 PRESENT AND INTACT. NO COMPLAINS OF PAIN. SAFETY PRECAUTIONS IN PLACE; BED IN LOW POSITION AND LOCKED, RAILS UP X2, CALL LIGHT WITHIN REACH. WILL CONTINUE TO MONITOR PATIENT.
[2021-05-10] MEDS: BLOOD SUGAR DIAGNOSTIC 1 EACH STRIP VI SCH ×4 (07:48→22:48)
[2021-05-10] MEDS: DEXAMETHASONE SOD PHOSPHATE 10 MG/ML VIAL IV SCH (08:02)
[2021-05-10] MEDS: PANTOPRAZOLE 40 MG TABLET.DR PO SCH (08:02)
[2021-05-10] MEDS: CLOPIDOGREL BISULFATE 75 MG TABLET PO SCH (08:02)
[2021-05-10] MEDS: INSULIN REGULAR, HUMAN 100 UNIT/ML 3 ML VIAL SQ PRN ×2 (08:05→11:39)
[2021-05-10 10:41] VITALS: BP 131/70
[2021-05-10 12:09] VITALS: BP 131/78
[2021-05-10] MEDS ORDERED: ACETAMINOPHEN 325 MG TABLET PO ONE (13:00)
[2021-05-10] MEDS ORDERED: methylPREDNISolone SOD SUCC 40 MG/ML VIAL IV ONE (13:00)
[2021-05-10] MEDS ORDERED: diphenhydrAMINE HCL 50 MG/ML VIAL IV ONE (13:00)
[2021-05-10] MEDS ORDERED: NS 0.9% IV ONE (14:00)
[2021-05-10] MEDS ORDERED: TOCILIZUMAB IV ONE (14:00)
[2021-05-10] MEDS: REMDESIVIR (CHARGED) 100 MG in IV NS 0.9% 100 ML IV SCH (17:08)
[2021-05-10 17:46] VITALS: BP 133/75
--- NOTE | 2021-05-10 18:52 | NUR ---
TIRE SHOP MECHANIC CLOSING NOTES PATIENT REMAINS IN BED, AWAKE, A/O X4. PATIENT ON OXYGEN THERAPY AT 15 LPM VIA NRB. TELE MONITOR WITH A CURRENT READING OF SR. IV ACCESS RFA G # 22 AND L HAND G #20 PRESENT AND INTACT. NO COMPLAINS OF PAIN DURING SHIFT. ALL NEEDS ATTENDED DURING THE DAY. SAFETY PRECAUTIONS IN PLACE; BED IN LOW POSITION AND LOCKED, RAILS UP X2, CALL LIGHT WITHIN REACH. WILL ENDORSE TO LOBBY CONCIERGE NURSE FOR VERENA.
--- NOTE | 2021-05-10 19:13 | NUR ---
RN OPENING NOTES RECEIVED PATIENT IN BED, AWAKE, A/O X4. 0N NRB @ 15LPM, NO SOB NOTED, NO S/S OF DISTRESS NOTED.NOTED WITH IV ACCESS AT RFA G#22 AND LEFT HAND G#20 PATENT AND INTACT AND FLUSHED WITH NS. NO COMPLAINS OF PAIN. SAFETY PRECAUTIONS IN PLACE; BED IN LOWEST POSITION AND LOCKED, RAILS UP X2, CALL LIGHT WITHIN REACH. WILL CONTINUE TO MONITOR PATIENT
[2021-05-10 20:00] VITALS: BP 135/72
[2021-05-10] MEDS: ATORVASTATIN 40 MG TABLET PO SCH (22:11)
[2021-05-10] MEDS: ENOXAPARIN SODIUM 40 MG/0.4 ML DISP.SYRIN SQ SCH (22:11)
[2021-05-10] MEDS: *INSULIN REGULAR(HUMULIN R)HUM 100 UNIT/ML VIAL SQ PRN (22:51)
--- NOTE | 2021-05-10 22:51 | NUR ---
RN NOTES PATIENT NOTED WITH BLOOD SUGAR 460 mg/dL, NO S/S OF HYPERGLYCEMIA NOTED, NO CHANGE IN LOC NOTED, INSULIN GIVEN PER SLIDING SCALE, NOTIFIED MD, LEFT MESSAGE WAITING FOR CALL BACK.
--- NOTE | 2021-05-10 23:15 | NUR ---
RN NOTES RECEIVED TELEPHONE ORDER FROM PEPE GOETZ, CHANGED SLIDING SCALE TO AGGRESSIVE SLIDING SCALE, INSULIN GLARGINE 20 UNITS, SQ HS NOTED AND CARRIED OUT.
[2021-05-10] MEDS ORDERED: DEXTROSE 50%-WATER 50 ML DISP.SYRIN IV PRN (23:30)
[2021-05-10] MEDS: INSULIN GLARGINE, 100 UNIT/ML CARTRIDGE SQ SCH (23:37)
[2021-05-11] VITALS: BP 131/69
[2021-05-11] MEDS: ZOLPIDEM TARTRATE 5 MG TABLET PO PRN ×2 (01:24→21:29)
[2021-05-11 04:00] VITALS: BP 136/74
[2021-05-11 06:51] LABS: BASOPHILS % (AUTO) 0.1 % (0.0-2.0); HEMATOCRIT 44 % (39-51); HEMOGLOBIN 15.9 g/dL (13.5-17.5); LYMPHOCYTES # (AUTO) 0.5 K/uL (0.8-4.8); LYMPHOCYTES % (AUTO) 6.6 % (20.0-44.0); MEAN CORPUSCULAR HGB CONC 36 g/dl (31.0-36.0); MEAN CORPUSCULAR VOLUME 94 fL (80-96); MONOCYTES # (AUTO) 0.7 K/uL (0.1-1.30); MONOCYTES % (AUTO) 9.3 % (2.0-12.0); NEUTROPHILS # (AUTO) 6.7 K/uL (1.8-8.9); PLATELET COUNT (AUTO) 179 K/uL (150-450); RED BLOOD CELL COUNT(AUTO) 4.72 MIL/uL (4.5-6.0)
[2021-05-11 07:23] LABS: ALBUMIN 2.7 g/dL (3.4-5.0); BILIRUBIN,DIRECT 0.4 mg/dL (0.0-0.2); BILIRUBIN,TOTAL 0.9 mg/dL (0.2-1.0); CALCIUM, SERUM 8.4 mg/dL (8.5-10.1); CREATININE 1.1 mg/dL (0.6-1.3); POTASSIUM 3.7 mmol/L (3.5-5.1); TOTAL PROTEIN, SERUM 6.4 g/dL (6.4-8.2)
--- NOTE | 2021-05-11 07:58 | NUR ---
RN CLOSING NOTES NO SIGNIFICANT CHANGES THROUGH OUT THE SHIFT, NO S/S OF DISTRESS NOTED.NOTED WITH IV ACCESS AT RFA G#22 AND LEFT HAND G#20 PATENT AND INTACT AND FLUSHED WITH NS. ALL DUE MEDS GIVEN ORDERED. NO COMPLAINS OF PAIN. SAFETY PRECAUTIONS IN PLACE; BED IN LOWEST POSITION AND LOCKED, RAILS UP X2, CALL LIGHT WITHIN REACH. WILL CONTINUE TO MONITOR PATIENT
[2021-05-11 08:00] VITALS: BP 134/81
[2021-05-11] MEDS: PANTOPRAZOLE 40 MG TABLET.DR PO SCH (09:12)
[2021-05-11] MEDS: CLOPIDOGREL BISULFATE 75 MG TABLET PO SCH (09:12)
[2021-05-11] MEDS: DEXAMETHASONE SOD PHOSPHATE 10 MG/ML VIAL IV SCH (09:12)
[2021-05-11] MEDS: BLOOD SUGAR DIAGNOSTIC 1 EACH STRIP IN SCH ×4 (09:12→21:59)
[2021-05-11 12:00] VITALS: BP 130/72
[2021-05-11 16:00] VITALS: BP 135/79
[2021-05-11] MEDS: REMDESIVIR (CHARGED) 100 MG in IV NS 0.9% 100 ML IV SCH (17:03)
[2021-05-11] MEDS: INSULIN REGULAR, HUMAN 100 UNIT/ML 3 ML VIAL SQ PRN (18:24)
--- NOTE | 2021-05-11 19:30 | NUR ---
RN OPENING NOTES RECEIVED PATIENT IN BED, AWAKE, ALERT, ORIENTED X4 AND VERBALLY RESPONSIVE. 0N NRB @ 15L AND PT TOLERATED WELL. BREATHING EVEN AND UNLABORED. IV ACCESS AT RFA G#22 AND LEFT HAND G#20 INTACT AND PATENT. NO S/S OF INFILTRATIONS. NO C/O PAIN OR DISCOMFORT. NO ACUTE DISTRESS. ALL SAFETY PRECAUTIONS IN PLACE. BED IN LOWEST POSITION AND LOCKED, SIDE RAILS UP X2, PLACE CALL LIGHT WITHIN REACH. WILL CONTINUE TO MONITOR.
[2021-05-11 20:00] VITALS: BP 128/74
--- NOTE | 2021-05-11 21:02 | NUR ---
RN NOTE PT RESTING IN BED, CONTINUES ON NRM @15L. NOT IN RESPIRATORY DISTRESS. DUE MEDICATIONS GIVEN. ALL NEEDS MET. V/S WNL. . RFA G22 IN PLACE AND PATENT. WILL ENDORSE TO NEXT SHIFT.
[2021-05-11] MEDS: ENOXAPARIN SODIUM 40 MG/0.4 ML DISP.SYRIN SQ SCH (21:28)
[2021-05-11] MEDS: ATORVASTATIN 40 MG TABLET PO SCH (21:29)
--- NOTE | 2021-05-11 21:35 | NUR ---
RN NOTES: PT C/O UNABLE TO SLEEP. AMBIEN GIVEN PER PRN ORDER. PT TOLERATED WELL. WILL CONTINUE TO MONITOR
[2021-05-11] MEDS: INSULIN GLARGINE, 100 UNIT/ML CARTRIDGE SQ SCH (22:01)
[2021-05-11] MEDS: *INSULIN REGULAR(HUMULIN R)HUM 100 UNIT/ML VIAL SQ PRN (22:03)
--- NOTE | 2021-05-11 23:05 | NUR ---
RN NOTES: PT'S BLOOD SUGAR 315, 20 UNITS OF LANTUS AND 8 UNITS OF REGULAR INSULIN GIVEN. NO S/S OF HYPER/HYPOGLYCEMIA. WILL CONTINUE TO MONITOR
[2021-05-12] VITALS (8 sets, daily range): BP systolic 124–150; BP diastolic 51–96
--- NOTE | 2021-05-12 06:34 | NUR ---
RN CLOSING NOTES PATIENT IN BED, AWAKE, ALERT, ORIENTED X4 AND VERBALLY RESPONSIVE. 0N NRB @ 15L, O2 SAT 93% AND PT TOLERATED WELL. BREATHING EVEN AND UNLABORED. IV ACCESS AT RFA G#22 AND LEFT HAND G#20 INTACT AND PATENT. NO S/S OF INFILTRATIONS. NO C/O PAIN OR DISCOMFORT. NO ACUTE DISTRESS. ALL DUE MEDS GIVEN ORDER. ALL SAFETY PRECAUTIONS IN PLACE. BED IN LOWEST POSITION AND LOCKED, SIDE RAILS UP X2, PLACE CALL LIGHT WITHIN REACH. WILL ENDORSE TO MORNING SHIFT NURSE.
[2021-05-12 07:42] LABS: BASOPHILS % (AUTO) 0.1 % (0.0-2.0); EOSINOPHILS % (AUTO) 0.3 % (0.0-6.0); HEMATOCRIT 48 % (39-51); HEMOGLOBIN 16.5 g/dL (13.5-17.5); LYMPHOCYTES # (AUTO) 0.7 K/uL (0.8-4.8); MEAN CORPUSCULAR HGB CONC 35 g/dl (31.0-36.0); MEAN CORPUSCULAR VOLUME 95 fL (80-96); MONOCYTES # (AUTO) 0.7 K/uL (0.1-1.30); MONOCYTES % (AUTO) 5.9 % (2.0-12.0); NEUTROPHILS # (AUTO) 10.3 K/uL (1.8-8.9); NEUTROPHILS % (AUTO) 87.7 % (43.0-81.0); PLATELET COUNT (AUTO) 202 K/uL (150-450); WHITE BLOOD COUNT (AUTO) 11.7 K/uL (4.3-11.0)
[2021-05-12] MEDS: DEXAMETHASONE SOD PHOSPHATE 10 MG/ML VIAL IV SCH (08:05)
[2021-05-12] MEDS: PANTOPRAZOLE 40 MG TABLET.DR PO SCH (08:05)
[2021-05-12] MEDS: CLOPIDOGREL BISULFATE 75 MG TABLET PO SCH (08:05)
[2021-05-12] MEDS: BLOOD SUGAR DIAGNOSTIC 1 EACH STRIP IN SCH ×4 (08:05→21:54)
[2021-05-12 09:11] LABS: ALBUMIN 2.8 g/dL (3.4-5.0); BILIRUBIN,DIRECT 0.4 mg/dL (0.0-0.2); BILIRUBIN,TOTAL 0.8 mg/dL (0.2-1.0); CREATININE 1.1 mg/dL (0.6-1.3); POTASSIUM 3.5 mmol/L (3.5-5.1); TOTAL PROTEIN, SERUM 6.4 g/dL (6.4-8.2)
[2021-05-12] MEDS: INSULIN REGULAR, HUMAN 100 UNIT/ML 3 ML VIAL SQ PRN ×2 (13:11→17:14)
[2021-05-12] MEDS: REMDESIVIR (CHARGED) 100 MG in IV NS 0.9% 100 ML IV SCH (17:10)
--- NOTE | 2021-05-12 19:08 | NUR ---
RN NOTE PT RESTING AWAKE IN BED, CONTINUES ON NRM @15L. NOT IN RESPIRATORY DISTRESS. DUE MEDICATIONS GIVEN. ALL NEEDS MET. V/S WNL. . RFA G22 IN PLACE AND PATENT. WILL ENDORSE TO NEXT SHIFT.
--- NOTE | 2021-05-12 19:20 | NUR ---
RN OPENING NOTES PATIENT RECEIVED IN BED, ALERT, ORIENTED X 4, [place] SPEAKING, RESPIRATORY EVEN AND UNLABORED. ON NRB @ 15LPM, NO SOB NOTED, NOT IN DISTRESS. PATIENT NOTED WITH IV ACCES ON RFA #22, LT. HAND #20 INTACT AND PATENT, FLUSHED WITH NS. NO S/S OF INFILTRATIONS. NO FACIAL GRIMACING NOTED. ALL SAFETY MEASURE IN PLACE. BED IN LOW POSITION AND LOCKED. SIDE RAILS X3, PLACE CALL LIGHT WITH IN REACH.
[2021-05-12] MEDS: ATORVASTATIN 40 MG TABLET PO SCH (21:07)
[2021-05-12] MEDS: ENOXAPARIN SODIUM 40 MG/0.4 ML DISP.SYRIN SQ SCH (21:07)
[2021-05-12] MEDS: INSULIN GLARGINE, 100 UNIT/ML CARTRIDGE SQ SCH (22:17)
[2021-05-13] VITALS: BP 130/58
[2021-05-13 04:00] VITALS: BP 127/70
--- NOTE | 2021-05-13 06:53 | NUR ---
RN OPENING NOTES PATIENT REMAIN STABLE THROUGH OUT THE SHIFT, RESPIRATORY EVEN AND UNLABORED. ON NRB @ 15LPM, NO SOB NOTED, NOT IN DISTRESS. PATIENT NOTED WITH IV ACCES ON RFA #22, LT. HAND #20 INTACT AND PATENT, FLUSHED WITH NS. NO S/S OF INFILTRATIONS. NO FACIAL GRIMACING NOTED. ALL DUE MEDS GIVEN ORDERED. ALL SAFETY MEASURE IN PLACE. BED IN LOW POSITION AND LOCKED. SIDE RAILS X3, PLACE CALL LIGHT WITH IN REACH
--- NOTE | 2021-05-13 07:30 | NUR ---
RN NOTE PT RESTING AT TIME OF ASSESSMENT. BREATHING EVEN AND UNLABORED W/ NO SIGN OF SOB OR DISTRESS. PT ON NRB @ 15LPM W/ 02 SAT OF 96%. PT HAS NSR ON TELE. IV ACCESS ON RFA INTACT AND PATENT. L HAND IV ACCESS INTACT AND PATENT. BED PLACED IN LOWEST POSITION AND WHEELS LOCKED. CALL LIGHT WITHIN REACH. ALL SAFETY MEASURES NOTED. WILL CONTINUE TO MONITOR.
[2021-05-13 07:51] LABS: CALCIUM, SERUM 8.1 mg/dL (8.5-10.1); CREATININE 1.1 mg/dL (0.6-1.3); POTASSIUM 3.8 mmol/L (3.5-5.1)
[2021-05-13 08:00] VITALS: BP 132/62
[2021-05-13] MEDS: PANTOPRAZOLE 40 MG TABLET.DR PO SCH (08:07)
[2021-05-13] MEDS: DEXAMETHASONE SOD PHOSPHATE 10 MG/ML VIAL IV SCH (08:07)
[2021-05-13] MEDS: CLOPIDOGREL BISULFATE 75 MG TABLET PO SCH (08:07)
[2021-05-13] MEDS: BLOOD SUGAR DIAGNOSTIC 1 EACH STRIP IN SCH ×4 (08:17→22:12)
--- NOTE | 2021-05-13 11:00 | NUR ---
RN NOTE PT L HAND PIV REMOVED DUE TO PAIN AT SITE. PT HAS ONLY RFA IV ACCESS INTACT AND PATENT.
[2021-05-13] MEDS: INSULIN REGULAR, HUMAN 100 UNIT/ML 3 ML VIAL SQ PRN ×2 (11:37→16:58)
[2021-05-13 12:00] VITALS: BP 115/64
[2021-05-13 15:16] LABS: BASOPHILS # (AUTO) 0.1 K/uL (0.0-0.2); BASOPHILS % (AUTO) 0.9 % (0.0-2.0); EOSINOPHILS % (AUTO) 1.6 % (0.0-6.0); HEMATOCRIT 49 % (39-51); HEMOGLOBIN 16.9 g/dL (13.5-17.5); LYMPHOCYTES # (AUTO) 0.7 K/uL (0.8-4.8); LYMPHOCYTES % (AUTO) 6.1 % (20.0-44.0); MEAN CORPUSCULAR HGB CONC 35 g/dl (31.0-36.0); MEAN CORPUSCULAR VOLUME 96 fL (80-96); MONOCYTES # (AUTO) 0.6 K/uL (0.1-1.30); MONOCYTES % (AUTO) 4.7 % (2.0-12.0); NEUTROPHILS # (AUTO) 10.1 K/uL (1.8-8.9); NEUTROPHILS % (AUTO) 86.7 % (43.0-81.0); PLATELET COUNT (AUTO) 214 K/uL (150-450); WHITE BLOOD COUNT (AUTO) 11.6 K/uL (4.3-11.0)
[2021-05-13 16:00] VITALS: BP 133/65
--- NOTE | 2021-05-13 18:35 | NUR ---
RN CLOSING NOTE PT REMAINED STABLE THROUGHOUT SHIFT. PT BREATHING EVEN AND UNLABORED W/ NO SOB OR DISTRESS. PT ON NRB @15LPM W/02 SAT OF 97%. PT NSR IN 70'S ON TELE MONITOR. PT HAS RFA IV ACCESS PATENT AND INTACT. BED PLACED IN LOWEST POSITION AND WHEELS LOCKED IN PLACE. CALL LIGHT WITHIN REACH. ALL SAFETY MEASURES NOTED. WILL ENDORSE TO WORKING MANAGER RN.
--- NOTE | 2021-05-13 19:30 | NUR ---
RN NOTE RECEIVED PATIENT IN BED, AO X 4, AUSTRIAN SPEAKING BUT UNDERSTANDS SIMPLE ARMENIAN, IN NO S/SX OF ACUTE DISTRESS AT THIS TIME. SATURATION AT 95% ON 15 LPM VIA NRB MASK, SR ON THE MONITOR, HR IS 90. NOTED IV SITE AT RFA 22GG, PATENT AND FLUSHING WELL, NO S/S OF INFECTION OR INFILTRATION. PATIENT IS CONTINENT AND ABLE TO USE URINAL. SAFETY MEASURES IMPLEMENTED. PATIENT BED ALARM IS ON. HEAD OF BED ELEVATED. BED IS LOCKED, IN LOWEST POSITION AND SIDE RAILS UP. CALL LIGHT WITHIN REACH OF THE PATIENT. WILL CONTINUE TO MONITOR AND REASSESS FOR ANY CHANGES.
[2021-05-13 20:00] VITALS: BP 114/39
[2021-05-13] MEDS: ENOXAPARIN SODIUM 40 MG/0.4 ML DISP.SYRIN SQ SCH (21:50)
[2021-05-13] MEDS: INSULIN GLARGINE, 100 UNIT/ML CARTRIDGE SQ SCH (22:13)
[2021-05-13] MEDS: *INSULIN REGULAR(HUMULIN R)HUM 100 UNIT/ML VIAL SQ PRN (22:15)
[2021-05-13] MEDS: ATORVASTATIN 40 MG TABLET PO SCH (22:28)
[2021-05-14] VITALS: BP 125/76
[2021-05-14 04:00] VITALS: BP 128/71
[2021-05-14 08:00] VITALS: BP 121/57
[2021-05-14] MEDS: CLOPIDOGREL BISULFATE 75 MG TABLET PO SCH (09:00)
[2021-05-14] MEDS: PANTOPRAZOLE 40 MG TABLET.DR PO SCH (09:00)
[2021-05-14] MEDS: DEXAMETHASONE SOD PHOSPHATE 10 MG/ML VIAL IV SCH (09:00)
[2021-05-14] MEDS: BLOOD SUGAR DIAGNOSTIC 1 EACH STRIP IN SCH ×4 (09:33→21:25)
[2021-05-14] MEDS: *INSULIN REGULAR(HUMULIN R)HUM 100 UNIT/ML VIAL SQ PRN ×3 (09:53→21:28)
[2021-05-14 12:00] VITALS: BP 120/70
[2021-05-14 16:00] VITALS: BP 114/55
[2021-05-14] MEDS: INSULIN REGULAR, HUMAN 100 UNIT/ML 3 ML VIAL SQ PRN (17:44)
[2021-05-14] MEDS: GUAIFENESIN/CODEINE 10 ML UDC PO PRN (18:51)
--- NOTE | 2021-05-14 19:40 | NUR ---
RN NOTE PT RECEIVED IN BED. PT IS ON 15L OF O2 VIA NRB. BREATHING EVEN AND UNLABORED. PT IS A/0X3-4, KITTITIAN SPEAKING. ON FURNITURE ASSOCIATE SHOWING NSR. IV ACCESS NOTED ON RIGHT FA #22. LINE FLUSHED, PATENT, AND INTACT WITH NO SIGNS OF INFILTRATION. ALL SAFETY MEASURES IMPLEMENTED. CALL LIGHT WITHIN REACH. WILL CONTINUE TO MONITOR AND ASSESS FOR ANY CHANGES DURING SHIFT.
[2021-05-14 20:00] VITALS: BP 125/66
[2021-05-14] MEDS: ATORVASTATIN 40 MG TABLET PO SCH (21:09)
[2021-05-14] MEDS: ENOXAPARIN SODIUM 40 MG/0.4 ML DISP.SYRIN SQ SCH (21:09)
[2021-05-14] MEDS: INSULIN GLARGINE, 100 UNIT/ML CARTRIDGE SQ SCH (21:26)
--- NOTE | 2021-05-14 21:32 | NUR ---
RN NOTE BS 282. WILL ADMINISTER INSULIN PER SLIDING SCALE.
[2021-05-14] MEDS: ZOLPIDEM TARTRATE 5 MG TABLET PO PRN (23:14)
[2021-05-15] VITALS: BP 99/66
[2021-05-15 04:00] VITALS: BP 137/70
[2021-05-15 06:01] LABS: BASOPHILS % (AUTO) 0.2 % (0.0-2.0); EOSINOPHILS % (AUTO) 2.9 % (0.0-6.0); HEMATOCRIT 49 % (39-51); LYMPHOCYTES # (AUTO) 0.5 K/uL (0.8-4.8); LYMPHOCYTES % (AUTO) 4.1 % (20.0-44.0); MEAN CORPUSCULAR HGB CONC 35 g/dl (31.0-36.0); MEAN CORPUSCULAR VOLUME 95 fL (80-96); MONOCYTES # (AUTO) 0.7 K/uL (0.1-1.30); NEUTROPHILS # (AUTO) 11.7 K/uL (1.8-8.9); NEUTROPHILS % (AUTO) 87.8 % (43.0-81.0); PLATELET COUNT (AUTO) 202 K/uL (150-450); WHITE BLOOD COUNT (AUTO) 13.3 K/uL (4.3-11.0)
--- NOTE | 2021-05-15 06:58 | NUR ---
RN NOTE NO CHANGES IN PT CONDITION DURING SHIFT. PT IS ON 15L OF O2 VIA NRB. BREATHING EVEN AND UNLABORED. PT IS A/0X3-4, BENGALI SPEAKING. ON WEB OPERATIONS LEAD SHOWING NSR. IV ACCESS NOTED ON RIGHT FA #22. LINE FLUSHED, PATENT, AND INTACT WITH NO SIGNS OF INFILTRATION. ALL DUE MEDS GIVEN ORDERED. PT KEPT CLEAN AND COMFORTABLE. ALL SAFETY MEASURES IMPLEMENTED. CALL LIGHT WITHIN REACH. WILL ENDORSE TO MORNING SHIFT RN FOR VEERNA.
--- NOTE | 2021-05-15 07:25 | NUR ---
GRAPHITE PAN DRIER TENDER OPENING NOTE PT RECEIVED IN BED. PT IS ON 15L OF O2 VIA NRB. BREATHING EVEN AND UNLABORED. PT IS A/0X3-4, ICELANDIC SPEAKING. NO CURRENT COMPLAINTS OF SOB OR PAIN AT THIS TIME. ON GRIDCAP MACHINE OPERATOR. IV ACCESS NOTED ON RIGHT FA #22. PATIENT ON COVID ISOLATION. ALL SAFETY MEASURES IMPLEMENTED. CALL LIGHT WITHIN REACH. BED IN THE LOWEST POSITION, LOCKED 2 SIDE RAILS UP.
[2021-05-15 07:52] LABS: CALCIUM, SERUM 8.3 mg/dL (8.5-10.1); CREATININE 1.1 mg/dL (0.6-1.3); MAGNESIUM 2.3 mg/dL (1.8-2.4); PHOSPHORUS 3.4 mg/dL (2.5-4.9); POTASSIUM 3.5 mmol/L (3.5-5.1)
[2021-05-15 08:00] VITALS: BP 135/75
[2021-05-15] MEDS: CLOPIDOGREL BISULFATE 75 MG TABLET PO SCH (08:04)
[2021-05-15] MEDS: DEXAMETHASONE SOD PHOSPHATE 10 MG/ML VIAL IV SCH (08:04)
[2021-05-15] MEDS: PANTOPRAZOLE 40 MG TABLET.DR PO SCH (08:04)
[2021-05-15] MEDS: BLOOD SUGAR DIAGNOSTIC 1 EACH STRIP IN SCH ×4 (08:05→23:34)
[2021-05-15 12:00] VITALS: BP 132/71
[2021-05-15] MEDS: INSULIN REGULAR, HUMAN 100 UNIT/ML 3 ML VIAL SQ PRN ×3 (12:29→23:35)
[2021-05-15] MEDS: ENOXAPARIN SODIUM 40 MG/0.4 ML DISP.SYRIN SQ SCH ×2 (15:19→23:28)
[2021-05-15 16:00] VITALS: BP 102/60
--- NOTE | 2021-05-15 18:40 | NUR ---
RN NOTE PATIENS 02 NOTED TO BE TRENDING DOWN, RT CALLED PATIENT PLACED ON HIGH FLOW NC 40LPM, ABGS DRAWN
--- NOTE | 2021-05-15 19:44 | NUR ---
RN OPENING NOTES, PT RECEIVED IN BED. PT IS ON 15L OF O2 VIA NRB + HIGH FLOW N/C 40L 100%, O2 SAT 85%. PT IS A/O X2-3, ENGLISH SPEAKING. IV ACCESS ON RFA#22G INTACT AND PATENT. NO S/S OF INFILTRATIONS. NO C/O PAIN OR DISCOMFORT. NO ACUTE DISTRESS. ALL SAFETY MEASURES IN PLACE. PLACE CALL LIGHT WITHIN REACH. BED IN THE LOWEST POSITION AND LOCKED. WILL CONTINUE TO MONITOR
[2021-05-15 20:00] VITALS: BP 118/61
--- NOTE | 2021-05-15 21:30 | NUR ---
RN NOTES: RECEIVED PT'S ABG RESULT. NOTIFIED DR. BENJAMIN GOETZ REGARDING PT'S ABG RESULT. PH-7.476, PCO2- 32.8MMHG, PO2-42.7MMHG, THB- 16,.5 G/DL. PT'S O2 SAT STILL ON 79-82%.V/S STABLE AT THIS MOMENT. PT IS ON HIGH FLOW N/C 40L 100% + NRB. DR. ARRIETA- VENTOLIN 2 PUFF Q4HRS FOR SOB PRN. ORDER NOTED AND CARRIED OUT.
[2021-05-15] MEDS ORDERED: ALBUTEROL SULFATE INH 18 GM HFA.AER.AD IH PRN (22:00)
[2021-05-15] MEDS: INSULIN GLARGINE, 100 UNIT/ML CARTRIDGE SQ SCH (22:00)
[2021-05-15] MEDS: ATORVASTATIN 40 MG TABLET PO SCH (23:26)
--- NOTE | 2021-05-15 23:36 | NUR ---
RN NOTES: PT'S BLOOD SUGAR 77. NO COVERAGE GIVEN. NO S/S OF HYPER/HYPOGLYCEMIA. WILL CONTINUE TO MONITOR
[2021-05-15] MEDS ORDERED: ALBUTEROL SULFATE INH 18 GM HFA.AER.AD ONE (23:40)
[2021-05-16] VITALS (58 sets, daily range): BP systolic 70–150; BP diastolic 32–84
--- NOTE | 2021-05-16 00:09 | NUR ---
RN NOTES: VENTOLIN IH I PUFF GIVEN PER PRN ORDER DUE TO SOB. PT TOLERATED WELL. WILL CONTINUE TO MONITOR
[2021-05-16] MEDS: GUAIFENESIN/CODEINE 10 ML UDC PO PRN (01:53)
--- NOTE | 2021-05-16 01:54 | NUR ---
RN NOTES: PT C/O NON-PRODUCTIVE COUGH. ROBITUSSIN W/ CODEINE 5ML GIVEN AND PT TOLERATED WELL. WILL CONTINUE TO MONITOR
[2021-05-16 02:53] LABS: ABG BASE EXCESS -0.8 mmol/L; ABG OXYGEN SATURATION 82.9 % (92.0-98.5); ABG PCO2 31.4 mmHg (35.0-45.0); ABG PH 7.461 (7.350-7.450); AaDO2 635.6 mmHg; COHb 0.3 % (0.5-1.5); MetHb 0.2 % (0.0-1.5); O2Hb 82.5 % (94.0-97.0); SITE, ABG Right Radial; VENT MODE, BG nrb
--- NOTE | 2021-05-16 03:13 | NUR ---
RN NOTES, CALLED DAUGHTER ABHIJIT AND INFORMED HER ABOUT FATHER'S CONDITION, INFORMED THAT PT IS ALREADY IN HF 4OL 100% FIO2 PLUS NRM 15L, AND PT CONTINUE WITH LOW O2, AND THE NEXT STEP AFTER THIS IS INTUBATION, ASKED DAUGHTER IF THEY WANT PATIENT FULL CODE WHICH INCLUDES INTUBATION AND CPR, AND PER DAUGHTER DO EVERYTHING FOR HIM.
[2021-05-16 03:19] LABS: ABG PCO2 32.8 mmHg (35.0-45.0); ABG PH 7.476 (7.350-7.450); ABG PO2 42.7 mmHg (75.0-100.0); AaDO2 637.5 mmHg; COHb 0.8 % (0.5-1.5); MetHb 0.3 % (0.0-1.5); O2Hb 79.1 % (94.0-97.0); SITE, ABG Right Brachial; VENT MODE, BG HFNC 40L 100% +NRB
--- NOTE | 2021-05-16 03:20 | NUR ---
RN NOTES: PT KEPT GETTING UP FROM THE BED. O2 SAT GOES DOWN. NOTIFIED SOFY AKINS WITH NEW ORDER OF SOFT BILATERAL RESTRAINTS. ORDER NOTED AND CARRIED OUT.
--- NOTE | 2021-05-16 03:50 | NUR ---
RN NOTES: NOTIFIED SOFY AKINS REGARDING PT'S RESPIRATION WENT UP TO 35-40. O2 SAT STILL GOES DOWN TO 79-83%. PT CONDITION WAS DECLINING. NEW ORDER TO INTUBATE THE PT. ORDER NOTED AND CARRIED OUT. REPORT HAS BEEN GIVEN TO EITAN WEEMS. ALL MEDICATIONS GIVEN. PT WAS TRANSFER TO ICU BED 260-1, PER ACLS PROTOCOL.
--- NOTE | 2021-05-16 04:10 | NUR ---
RN NOTE 0407 PATIENT TRANSFERRED FROM ROOM 117-2 TO ROOM 260. SOFY ALEXANDER MD WITH ORDER TO INTUBATE. 0410 PATIENT MEDICATED PRIOR TO INTUBATION, FACILITATED BY DR. MUNOZ. ETT SIZE 8/25CM.
--- NOTE | 2021-05-16 04:14 | NUR ---
RN NOTE SPOKE WITH DR. BENJAMIN GOETZ WITH ORDERS FOR DIPRIVAN PER PROTOCOL, F/C, AND NGT. NOTED AND CARRIED OUT. UPDATED SON ON PATIENT'S CONDITION.
--- NOTE | 2021-05-16 04:15 | NUR ---
RN NOTES, CALLED DAUGHTER ABHIJIT AT [phone] UNABLE TO REACH, WILL CALL BROTHER TO INFORM THEM PATIENT IS IN ICU INTUBATED.
[2021-05-16] MEDS: PROPOFOL 100 ML IV PRN ×9 (04:20→23:00)
--- NOTE | 2021-05-16 04:20 | NUR ---
RN NOTES, CALLED SON GRIFFIN AT [phone] AND INFORMED THAT PATIENT WAS TRANSFERRED TO ICU AND IS ALREADY INTUBATED, ICU PHONE NUMBER PROVIDED TO THEM, DAUGHTER ABHIJIT IN THE CONVERSATION TOO.
--- NOTE | 2021-05-16 04:35 | NUR ---
pt intubated with 8.0 ett @ 25cm, and placed on vent settings ac 20 550 100% +5. Addendum: 05/16/21 at 0439 by JODI BAINS RT Amended: Links added.
[2021-05-16 05:18] LABS: BASOPHILS % (AUTO) 0.2 % (0.0-2.0); EOSINOPHILS % (AUTO) 2.9 % (0.0-6.0); HEMATOCRIT 47 % (39-51); HEMOGLOBIN 16.4 g/dL (13.5-17.5); LYMPHOCYTES # (AUTO) 0.8 K/uL (0.8-4.8); LYMPHOCYTES % (AUTO) 4.8 % (20.0-44.0); MEAN CORPUSCULAR HGB CONC 35 g/dl (31.0-36.0); MEAN CORPUSCULAR VOLUME 95 fL (80-96); MONOCYTES # (AUTO) 0.7 K/uL (0.1-1.30); MONOCYTES % (AUTO) 3.7 % (2.0-12.0); NEUTROPHILS # (AUTO) 15.4 K/uL (1.8-8.9); NEUTROPHILS % (AUTO) 88.4 % (43.0-81.0); PLATELET COUNT (AUTO) 214 K/uL (150-450); RED BLOOD CELL COUNT(AUTO) 4.96 MIL/uL (4.5-6.0); WHITE BLOOD COUNT (AUTO) 17.5 K/uL (4.3-11.0)
[2021-05-16 05:39] LABS: CALCIUM, SERUM 8.4 mg/dL (8.5-10.1); CARBON DIOXIDE 29 mmol/L (21-32); CHLORIDE 100 mmol/L (98-107); CREATININE 1.3 mg/dL (0.6-1.3); GLUCOSE 135 mg/dL (74-106); SODIUM SERUM 137 mmol/L (136-145); UREA NITROGEN, BLOOD 23 mg/dL (7-18)
[2021-05-16] MEDS ORDERED: PHENYLEPHRINE 10 MG/ML VIAL ONE (06:28)
--- NOTE | 2021-05-16 06:28 | NUR ---
RN NOTE PATIENT'S SBP 71/46, RECYCLED 85/57. INFORMED DR. GOETZ WITH NEW ORDERS FOR RIYA AND MIDLINE INSERTION. NOTED AND CARRIED OUT.
[2021-05-16] MEDS ORDERED: PHENYLEPHRINE 50 MG in IV NS 0.9% 245 ML IV PRN (06:30)
[2021-05-16] MEDS: PHENYLEPHRINE 50 MG in IV NS 0.9% 245 ML IV PRN ×2 (06:40→20:06)
--- NOTE | 2021-05-16 07:20 | NUR ---
RN NOTE PATIENT STABLE AT THIS TIME. REMAINS SEDATED AND INTUBATED. O2 SAT 98%. IV ACCESS ON RIGHT HAND AND RIGHT WRIST, PATENT AND INTACT. FOR MIDLINE INSERTION. GATES CATH DRAINING URINE VIA GRAVITY. BED LOCKED AND IN LOWEST POSITION. CALL LIGHT WITHIN REACH. ENDORSED TO AM SHIFT.
--- NOTE | 2021-05-16 07:30 | NUR ---
RN NOTES PT FOUND SEMI FOWLERS DISPLAYING NO S/S OF DISTRESS, FLACC = 0, RIKERS = 3, BILATERAL RISE AND FALL OF THE CHEST OBSERVED. R HAND AND WRIST IV ARE PATIENT AND INTACT. BILATERAL SOFT WRISTS APPLIED, PULSES PALPATED AND CAP REFILL < 3 SECONDS BILATERALLY. GATES CATH BELOW PATIENT DRAINING BY GRAVITY. VSS, RN WILL MONITOR AND TREAT THROUGHOUT SHIFT. SAFETY MEASURES IN PLACE, BED LOCKED AND IN LOWEST POSITION, SIDE RAILS UPX2, CALL LIGHT WITHIN REACH, BED ALARM ARMED.
[2021-05-16] MEDS: BLOOD SUGAR DIAGNOSTIC 1 EACH STRIP IN SCH ×4 (08:10→22:08)
[2021-05-16] MEDS: DEXAMETHASONE SOD PHOSPHATE 10 MG/ML VIAL IV SCH (08:10)
[2021-05-16] MEDS: ENOXAPARIN SODIUM 40 MG/0.4 ML DISP.SYRIN SQ SCH ×2 (08:18→21:57)
[2021-05-16] MEDS: INSULIN REGULAR, HUMAN 100 UNIT/ML 3 ML VIAL SQ PRN ×3 (08:19→17:51)
[2021-05-16] MEDS: CLOPIDOGREL BISULFATE 75 MG TABLET PO SCH (12:39)
[2021-05-16] MEDS: PANTOPRAZOLE 40 MG TABLET.DR PO SCH (12:39)
[2021-05-16] MEDS: DOXYCYCLINE 100 MG in IV D5W 100 ML IV SCH ×2 (12:45→21:41)
[2021-05-16] MEDS: CEFEPIME 2 GM in IV D5W 100 ML IV SCH (13:43)
--- NOTE | 2021-05-16 19:30 | NUR ---
RN NOTES PT FOUND SEMI FOWLERS DISPLAYING NO S/S OF DISTRESS, FLACC = 0, RIKERS = 3, BILATERAL RISE AND FALL OF THE CHEST OBSERVED. R HAND AND WRIST IV ARE PATIENT AND INTACT. BILATERAL SOFT WRISTS APPLIED, PULSES PALPATED AND CAP REFILL < 3 SECONDS BILATERALLY. GATES CATH BELOW PATIENT DRAINING BY GRAVITY. SBAR AND REPORT GIVEN TO MARKETING OPERATIONS CONSULTANT RN, ALL QUESTIONS ANSWERED. SAFETY MEASURES IN PLACE, BED LOCKED AND IN LOWEST POSITION, SIDE RAILS UPX2, CALL LIGHT WITHIN REACH, BED ALARM ARMED. PT ENDORSED IN STABLE CONDITION FOR VERENA.
[2021-05-16 21:06] LABS: ABG BASE EXCESS 0.7 mmol/L; ABG OXYGEN SATURATION 73.3 % (92.0-98.5); ABG PCO2 38.3 mmHg (35.0-45.0); ABG PH 7.429 (7.350-7.450); ABG PO2 39.4 mmHg (75.0-100.0); AaDO2 635.3 mmHg; COHb 0.4 % (0.5-1.5); MetHb 0.1 % (0.0-1.5); O2Hb 72.9 % (94.0-97.0); PEEP,BG 5 cm H2O; SITE, ABG Right Brachial; VENT MODE, BG AC 20 550 100% +5; VT, ABG 550 mL
[2021-05-16] MEDS: ATORVASTATIN 40 MG TABLET PO SCH (21:40)
[2021-05-16] MEDS: INSULIN GLARGINE, 100 UNIT/ML CARTRIDGE SQ SCH (21:58)
[2021-05-16] MEDS: *INSULIN REGULAR(HUMULIN R)HUM 100 UNIT/ML VIAL SQ PRN (21:58)
[2021-05-16] MEDS: GLUCERNA 1.2 1,000 ML BOTTLE NG PRN (22:05)
[2021-05-17] VITALS (80 sets, daily range): BP systolic 91–130; BP diastolic 53–73
[2021-05-17] MEDS: CEFEPIME 2 GM in IV D5W 100 ML IV SCH ×2 (00:04→13:06)
[2021-05-17] MEDS: PROPOFOL 100 ML IV PRN ×10 (01:33→22:33)
--- NOTE | 2021-05-17 07:30 | NUR ---
RN NOTES PT FOUND SEMI FOWLERS DISPLAYING NO S/S OF DISTRESS, FLACC = 0, RIKERS = 3, BILATERAL RISE AND FALL OF THE CHEST OBSERVED. R HAND AND WRIST IV L UA PICC ARE PATIENT AND INTACT. BILATERAL SOFT WRISTS APPLIED, PULSES PALPATED AND CAP REFILL < 3 SECONDS BILATERALLY. GATES CATH BELOW PATIENT DRAINING BY GRAVITY. VSS, RN WILL MONITOR AND TREAT THROUGHOUT SHIFT. SAFETY MEASURES IN PLACE, BED LOCKED AND IN LOWEST POSITION, SIDE RAILS UPX2, CALL LIGHT WITHIN REACH, BED ALARM ARMED.
[2021-05-17] MEDS: PANTOPRAZOLE 40 MG TABLET.DR PO SCH (07:43)
[2021-05-17] MEDS: BLOOD SUGAR DIAGNOSTIC 1 EACH STRIP IN SCH ×4 (08:14→21:18)
[2021-05-17] MEDS: DOXYCYCLINE 100 MG in IV D5W 100 ML IV SCH ×2 (09:05→20:46)
[2021-05-17] MEDS: CLOPIDOGREL BISULFATE 75 MG TABLET PO SCH (09:05)
[2021-05-17] MEDS: DEXAMETHASONE SOD PHOSPHATE 10 MG/ML VIAL IV SCH (09:05)
[2021-05-17] MEDS: PANTOPRAZOLE 40 MG VIAL IV SCH (09:05)
[2021-05-17] MEDS: ENOXAPARIN SODIUM 40 MG/0.4 ML DISP.SYRIN SQ SCH ×2 (09:07→20:47)
--- NOTE | 2021-05-17 09:53 | NUR ---
vent changes below per dr. stephenson: fio2 75% peep +12 Addendum: 05/17/21 at 0954 by KUNAL MCKEON RT Amended: Links added.
[2021-05-17] MEDS: PHENYLEPHRINE 50 MG in IV NS 0.9% 245 ML IV PRN (10:37)
[2021-05-17] MEDS: INSULIN REGULAR, HUMAN 100 UNIT/ML 3 ML VIAL SQ PRN (17:29)
--- NOTE | 2021-05-17 19:10 | NUR ---
RN NOTE RECEIVED PATIENT IN BED SEDATED, ORALLY INTUBATED,ON MECHANICAL VENT,IV SITE IS ON LEFT UPPER ARM PICC LINE AND RIGHT HAND AND RIGHT WRIST INTACT PATENT ON PROPOFOL 85MCG/KG/MIN NAD RIYA 0.07 MCG/KG/MIN GATES CATHETER IN PLACE URINE DRAINING YELLOW AND CLEAR BY GRAVITY,ON NGT CHECK PLACEMENT IN PLACE NO RESIDUAL NOTED,ON GLUCERNA 1.2 20CC/HR ,SAFETY MEASURE IMPLEMENT HEAD OF THE BED ELEVATED,SOFT BILATERAL RESTRAIN IN PLACE WILL CHECK EVERY 15MINS FOR SKIN BREAKDOWN AND CIRCULATION,CONTINUE MONITOR CLOSELY.
--- NOTE | 2021-05-17 19:10 | NUR ---
RN NOTES PT FOUND SEMI FOWLERS DISPLAYING NO S/S OF DISTRESS, FLACC = 0, RIKERS = 3, BILATERAL RISE AND FALL OF THE CHEST OBSERVED. R HAND AND WRIST IV L UA PICC ARE PATIENT AND INTACT. BILATERAL SOFT WRISTS APPLIED, PULSES PALPATED AND CAP REFILL < 3 SECONDS BILATERALLY. GATES CATH BELOW PATIENT DRAINING BY GRAVITY. SBAR AND REPORT GIVEN TO AIR ROUTE TRAFFIC CONTROLLER RN, ALL QUESTIONS ANSWERED. SAFETY MEASURES IN PLACE, BED LOCKED AND IN LOWEST POSITION, SIDE RAILS UPX2, CALL LIGHT WITHIN REACH, BED ALARM ARMED. PT ENDORSED IN STABLE CONDITION FOR VERENA.
[2021-05-17] MEDS: ATORVASTATIN 40 MG TABLET PO SCH (21:23)
[2021-05-17] MEDS: INSULIN GLARGINE, 100 UNIT/ML CARTRIDGE SQ SCH (22:01)
[2021-05-17] MEDS: *INSULIN REGULAR(HUMULIN R)HUM 100 UNIT/ML VIAL SQ PRN (22:06)
[2021-05-18] VITALS (60 sets, daily range): BP systolic 104–132; BP diastolic 59–77
[2021-05-18] MEDS: PROPOFOL 100 ML IV PRN ×7 (00:28→15:35)
[2021-05-18] MEDS: CEFEPIME 2 GM in IV D5W 100 ML IV SCH ×2 (00:31→13:31)
[2021-05-18] MEDS: PHENYLEPHRINE 50 MG in IV NS 0.9% 245 ML IV PRN (01:22)
[2021-05-18 04:31] LABS: BASOPHILS % (AUTO) 0.2 % (0.0-2.0); HEMATOCRIT 44 % (39-51); HEMOGLOBIN 15.5 g/dL (13.5-17.5); LYMPHOCYTES # (AUTO) 0.7 K/uL (0.8-4.8); LYMPHOCYTES % (AUTO) 4.7 % (20.0-44.0); MEAN CORPUSCULAR HGB CONC 35 g/dl (31.0-36.0); MEAN CORPUSCULAR VOLUME 96 fL (80-96); MONOCYTES # (AUTO) 0.7 K/uL (0.1-1.30); NEUTROPHILS # (AUTO) 12.5 K/uL (1.8-8.9); NEUTROPHILS % (AUTO) 87.1 % (43.0-81.0); PLATELET COUNT (AUTO) 162 K/uL (150-450); RED BLOOD CELL COUNT(AUTO) 4.57 MIL/uL (4.5-6.0); WHITE BLOOD COUNT (AUTO) 14.3 K/uL (4.3-11.0)
[2021-05-18 04:50] LABS: CALCIUM, SERUM 7.9 mg/dL (8.5-10.1); CARBON DIOXIDE 24 mmol/L (21-32); CHLORIDE 103 mmol/L (98-107); CREATININE 1.2 mg/dL (0.6-1.3); GLUCOSE 170 mg/dL (74-106); POTASSIUM 4.1 mmol/L (3.5-5.1); SODIUM SERUM 136 mmol/L (136-145); UREA NITROGEN, BLOOD 24 mg/dL (7-18)
--- NOTE | 2021-05-18 06:48 | NUR ---
RN NOTE PATIENT REMAINS ON MECHANICAL VENT SEDATED,ON PROPOFOL 85MCG/KG/MIN AND ON RIYA 0.6 MCG/KG/MIN IV SITE IS ON LEFT UPPER ARM PICC LINE AND RIGHT HAND,RIGHT WRIST INTACT AND PATENT,ON NGT FEEDING GLUCERNA 1.2 20CC/HR, HEAD OF THE BED ELEVATED,REPOSITIONED EVERY 2HOURS,KEPT CLEAN AND DRY ALL THE TIME,ALL DUE MEDS GIVEN MD ORDERED,SOFT BILATERAL RESTRAIN IN PLACE CHECKED EVERY 15 MINS FOR CIRCULATION AND SKIN BREAKDOWN,ENDORSE NEXT COMING SHIFT FOR CONTINUATION OF CARE.
[2021-05-18] MEDS: BLOOD SUGAR DIAGNOSTIC 1 EACH STRIP IN SCH ×4 (07:30→23:24)
--- NOTE | 2021-05-18 07:30 | NUR ---
OPENING NOTE: REPORT RECEIVED FROM LENA WEEMS. PT INTUBATED/SEDATED WITHOUT DIFFICULTY. NO CHANGE IN VENT SETTINGS OVERNIGHT PER REPORT. TUBE FEEDING INFUSING PER MD ORDERS. PT CHECKED ON HOURLY AND PRN BY NURSING STAFF.
[2021-05-18] MEDS ORDERED: PHARMACY TO CHANGE PO MEDS TO GT/NG XX PRN (08:00)
[2021-05-18] MEDS ORDERED: DEXTROSE 50%-WATER 50 ML DISP.SYRIN IV PRN (08:00)
[2021-05-18] MEDS: DEXAMETHASONE SOD PHOSPHATE 10 MG/ML VIAL IV SCH (08:10)
[2021-05-18] MEDS ORDERED: GUAIFENESIN/CODEINE 10 ML UDC GT PRN (08:10)
[2021-05-18] MEDS: DOXYCYCLINE 100 MG in IV D5W 100 ML IV SCH ×2 (08:10→21:15)
[2021-05-18] MEDS: ENOXAPARIN SODIUM 40 MG/0.4 ML DISP.SYRIN SQ SCH ×2 (08:12→21:17)
[2021-05-18] MEDS: PANTOPRAZOLE 40 MG/PACK PACK GT SCH (08:14)
[2021-05-18] MEDS: CLOPIDOGREL BISULFATE 75 MG TABLET GT SCH (08:15)
[2021-05-18] MEDS: PANTOPRAZOLE 40 MG VIAL IV SCH (08:15)
[2021-05-18 10:56] LABS: ABG BASE EXCESS -1.6 mmol/L; ABG OXYGEN SATURATION 83.4 % (92.0-98.5); ABG PO2 48.1 mmHg (75.0-100.0); AaDO2 336.8 mmHg; COHb 0.6 % (0.5-1.5); MetHb 0.2 % (0.0-1.5); O2Hb 82.7 % (94.0-97.0); PEEP,BG 10 cm H2O; SITE, ABG A-Line; VT, ABG 550 mL
[2021-05-18] MEDS: MIDAZOLAM HCL 100 MG in IV NS 0.9% 80 ML IV PRN (12:53)
[2021-05-18] MEDS: FENTANYL CITRAT IV 2,500 MCG in IV NS 0.9% 200 ML IV PRN (12:54)
[2021-05-18] MEDS: INSULIN REGULAR, HUMAN 100 UNIT/ML 3 ML VIAL SQ PRN ×3 (13:40→23:24)
--- NOTE | 2021-05-18 19:14 | NUR ---
END OF SHIFT NOTE: PROPOFOL DC'D TODAY, CHANGED TO FENTANYL 100MCG AND VERSED 1MG. RIYA-SYNEPHRINE WAS STOPPED TODAY AT 1700 PER MD ORDERS, ADEQUATE VS. NO BM THIS SHIFT. NO SIGNIFICANT EVENTS THIS SHIFT. PT CHECKED ON HOURLY AND PRN BY NURSING STAFF.
--- NOTE | 2021-05-18 20:19 | NUR ---
PT RECEIVED INTUBATED 8.0 ETT SECURED AT 25CM. PT TOLERATING VENT SETTINGS. SX'D SMALL AMT OF SECRETIONS. VENT ALARMS SET AND AUDIBLE. CONTINUE TO MONITOR. Addendum: 05/18/21 at 2026 by ZBIGNIEW RENTERIA RT Amended: Links added.
[2021-05-18] MEDS: ATORVASTATIN 40 MG TABLET GT SCH (21:23)
[2021-05-18] MEDS: INSULIN GLARGINE, 100 UNIT/ML CARTRIDGE SQ SCH (23:22)
[2021-05-18] MEDS: GLUCERNA 1.2 1,000 ML BOTTLE NG PRN (23:24)
[2021-05-19] VITALS (25 sets, daily range): BP systolic 93–137; BP diastolic 58–79
[2021-05-19] MEDS: CEFEPIME 2 GM in IV D5W 100 ML IV SCH ×2 (01:08→13:13)
--- NOTE | 2021-05-19 04:09 | NUR ---
FIO2 TITRATED TO 60% RN NOTIFIED. O2 SAT 97%.
[2021-05-19 04:37] LABS: BASOPHILS % (AUTO) 0.2 % (0.0-2.0); EOSINOPHILS % (AUTO) 1.9 % (0.0-6.0); HEMATOCRIT 41 % (39-51); HEMOGLOBIN 14.2 g/dL (13.5-17.5); LYMPHOCYTES # (AUTO) 0.7 K/uL (0.8-4.8); LYMPHOCYTES % (AUTO) 6.3 % (20.0-44.0); MEAN CORPUSCULAR HGB CONC 35 g/dl (31.0-36.0); MEAN CORPUSCULAR VOLUME 97 fL (80-96); MONOCYTES # (AUTO) 0.5 K/uL (0.1-1.30); MONOCYTES % (AUTO) 4.7 % (2.0-12.0); NEUTROPHILS # (AUTO) 9.4 K/uL (1.8-8.9); NEUTROPHILS % (AUTO) 86.9 % (43.0-81.0); PLATELET COUNT (AUTO) 126 K/uL (150-450); RED BLOOD CELL COUNT(AUTO) 4.18 MIL/uL (4.5-6.0); WHITE BLOOD COUNT (AUTO) 10.9 K/uL (4.3-11.0)
[2021-05-19 04:45] LABS: CALCIUM, SERUM 7.7 mg/dL (8.5-10.1); CARBON DIOXIDE 28 mmol/L (21-32); CHLORIDE 106 mmol/L (98-107); GLUCOSE 117 mg/dL (74-106); SODIUM SERUM 138 mmol/L (136-145); UREA NITROGEN, BLOOD 30 mg/dL (7-18)
[2021-05-19] MEDS: BLOOD SUGAR DIAGNOSTIC 1 EACH STRIP IN SCH ×4 (05:22→23:43)
--- NOTE | 2021-05-19 07:10 | NUR ---
RN NOTES RECEIVED PT IN BED SEDATED. TOLERATING VENT SETTINGS WELL. IV ACCESS ON IRISH PICC LINE, R HAND AND R WRIST ALL INTACT AND PATENT. FENTANYL @150 AND VERSED @4. GATES CATH IN PLACE DRAINING YELLOW URINE BY GRAVITY. NGT IN PLACE. CHECKED PLACEMENT. NO RESIDUAL NOTED. ON GLUCERNA 1.2 @20CC/HR. SAFETY MEASURES IMPLEMENTED. SOFT BILATERAL WRIST RESTRAINTS IN PLACE, CHECKED CIRCULATION PER PROTOCOL. BED LOCKED AND IN LOWEST POSITION WITH SIDE RAILS UP X3. WILL CONTINUE MONITOR.
[2021-05-19] MEDS: FENTANYL CITRAT IV 2,500 MCG in IV NS 0.9% 200 ML IV PRN ×2 (07:45→21:27)
[2021-05-19] MEDS: CLOPIDOGREL BISULFATE 75 MG TABLET GT SCH (08:31)
[2021-05-19] MEDS: DEXAMETHASONE SOD PHOSPHATE 10 MG/ML VIAL IV SCH (08:31)
[2021-05-19] MEDS: PANTOPRAZOLE 40 MG/PACK PACK GT SCH (08:31)
[2021-05-19] MEDS: ENOXAPARIN SODIUM 40 MG/0.4 ML DISP.SYRIN SQ SCH ×2 (08:32→21:40)
[2021-05-19] MEDS: DOXYCYCLINE 100 MG in IV D5W 100 ML IV SCH ×2 (08:32→21:22)
[2021-05-19] MEDS: INSULIN REGULAR, HUMAN 100 UNIT/ML 3 ML VIAL SQ PRN ×2 (18:06→23:43)
--- NOTE | 2021-05-19 18:57 | NUR ---
RN NOTES NO SIGNIFICANT CHANGES THROUGHOUT THE SHIFT. TOLERATING VENT SETTINGS WELL. ALL DUE MEDS GIVEN. NEEDS ATTENDED. KEPT CLEAN AND COMFORTABLE. WILL ENDORSE TO NIGHT RN FOR VERENA.
[2021-05-19] MEDS: MIDAZOLAM HCL 100 MG in IV NS 0.9% 80 ML IV PRN (21:26)
[2021-05-19] MEDS: ATORVASTATIN 40 MG TABLET GT SCH (21:39)
[2021-05-19] MEDS: GLUCERNA 1.2 1,000 ML BOTTLE NG PRN (23:30)
[2021-05-19] MEDS: INSULIN GLARGINE, 100 UNIT/ML CARTRIDGE SQ SCH (23:42)
[2021-05-20] VITALS (29 sets, daily range): BP systolic 101–148; BP diastolic 60–78
[2021-05-20] MEDS: CEFEPIME 2 GM in IV D5W 100 ML IV SCH ×2 (01:08→13:11)
[2021-05-20] MEDS: BLOOD SUGAR DIAGNOSTIC 1 EACH STRIP IN SCH ×4 (05:58→23:14)
[2021-05-20] MEDS: PANTOPRAZOLE 40 MG/PACK PACK GT SCH (08:24)
[2021-05-20] MEDS: DEXAMETHASONE SOD PHOSPHATE 10 MG/ML VIAL IV SCH (08:24)
[2021-05-20] MEDS: CLOPIDOGREL BISULFATE 75 MG TABLET GT SCH (08:24)
[2021-05-20] MEDS: ENOXAPARIN SODIUM 40 MG/0.4 ML DISP.SYRIN SQ SCH ×2 (08:26→21:12)
[2021-05-20] MEDS: DOXYCYCLINE 100 MG in IV D5W 100 ML IV SCH ×2 (08:29→21:12)
[2021-05-20] MEDS: INSULIN REGULAR, HUMAN 100 UNIT/ML 3 ML VIAL SQ PRN ×3 (12:12→23:26)
[2021-05-20] MEDS: FENTANYL CITRAT IV 2,500 MCG in IV NS 0.9% 200 ML IV PRN (14:45)
[2021-05-20] MEDS: ATORVASTATIN 40 MG TABLET GT SCH (21:12)
[2021-05-20] MEDS: MIDAZOLAM HCL 100 MG in IV NS 0.9% 80 ML IV PRN (21:33)
[2021-05-20] MEDS: INSULIN GLARGINE, 100 UNIT/ML CARTRIDGE SQ SCH (23:26)
[2021-05-21] VITALS (24 sets, daily range): BP systolic 106–136; BP diastolic 60–78
[2021-05-21] MEDS: CEFEPIME 2 GM in IV D5W 100 ML IV SCH ×2 (00:17→12:47)
[2021-05-21] MEDS: BLOOD SUGAR DIAGNOSTIC 1 EACH STRIP IN SCH ×3 (05:25→18:21)
[2021-05-21] MEDS: FENTANYL CITRAT IV 2,500 MCG in IV NS 0.9% 200 ML IV PRN ×2 (06:23→19:47)
[2021-05-21 06:42] LABS: BASOPHILS % (AUTO) 0.2 % (0.0-2.0); EOSINOPHILS % (AUTO) 0.9 % (0.0-6.0); HEMATOCRIT 40 % (39-51); HEMOGLOBIN 13.9 g/dL (13.5-17.5); LYMPHOCYTES # (AUTO) 0.9 K/uL (0.8-4.8); LYMPHOCYTES % (AUTO) 8.5 % (20.0-44.0); MEAN CORPUSCULAR HGB CONC 35 g/dl (31.0-36.0); MEAN CORPUSCULAR VOLUME 100 fL (80-96); MONOCYTES # (AUTO) 0.5 K/uL (0.1-1.30); MONOCYTES % (AUTO) 5.4 % (2.0-12.0); NEUTROPHILS # (AUTO) 8.5 K/uL (1.8-8.9); PLATELET COUNT (AUTO) 124 K/uL (150-450); RED BLOOD CELL COUNT(AUTO) 4.04 MIL/uL (4.5-6.0)
[2021-05-21 06:54] LABS: CALCIUM, SERUM 7.9 mg/dL (8.5-10.1); CREATININE 0.9 mg/dL (0.6-1.3); POTASSIUM 4.2 mmol/L (3.5-5.1)
--- NOTE | 2021-05-21 07:30 | NUR ---
OPENING NOTE: REPORT RECEIVED FROM VENKATESH WEEMS. NO SIGNIFICANT EVENTS OVERNIGHT. PT SEDATED ON FENTANYL AND VERSED PER MD ORDERS.
[2021-05-21] MEDS: PANTOPRAZOLE 40 MG/PACK PACK GT SCH (08:42)
[2021-05-21] MEDS: DEXAMETHASONE SOD PHOSPHATE 10 MG/ML VIAL IV SCH (08:43)
[2021-05-21] MEDS: CLOPIDOGREL BISULFATE 75 MG TABLET GT SCH (08:43)
[2021-05-21] MEDS: DOXYCYCLINE 100 MG in IV D5W 100 ML IV SCH ×2 (08:43→22:48)
[2021-05-21] MEDS: ENOXAPARIN SODIUM 40 MG/0.4 ML DISP.SYRIN SQ SCH ×2 (08:44→22:49)
--- NOTE | 2021-05-21 09:33 | NUR ---
NG TUBE REPLACES AT THIS TIME IN LEFT NARES WITHOUT DIFFICULT. PREVIOUS NG CLOGGED.
[2021-05-21] MEDS: GLUCERNA 1.2 1,000 ML BOTTLE NG PRN (12:21)
[2021-05-21] MEDS: INSULIN REGULAR, HUMAN 100 UNIT/ML 3 ML VIAL SQ PRN ×2 (12:43→18:57)
[2021-05-21] MEDS: MIDAZOLAM HCL 100 MG in IV NS 0.9% 80 ML IV PRN (18:27)
--- NOTE | 2021-05-21 18:58 | NUR ---
END OF SHIFT NOTE: NO SIGNIFICANT EVENTS THIS SHIFT. VERSED INCREASED TO 6MG/HR AND FENTANYL INCREASED TO 200 MCG/HR FOR SEDATION. PT CHECKED ON HOURLY AND PRN BY NURSING STAFF.
[2021-05-21] MEDS: ATORVASTATIN 40 MG TABLET GT SCH (22:48)
[2021-05-22] VITALS (24 sets, daily range): BP systolic 103–126; BP diastolic 56–70
[2021-05-22] MEDS: BLOOD SUGAR DIAGNOSTIC 1 EACH STRIP IN SCH ×5 (00:35→23:31)
[2021-05-22] MEDS: INSULIN GLARGINE, 100 UNIT/ML CARTRIDGE SQ SCH ×2 (00:36→23:30)
[2021-05-22] MEDS: INSULIN REGULAR, HUMAN 100 UNIT/ML 3 ML VIAL SQ PRN ×5 (00:37→23:31)
[2021-05-22] MEDS: CEFEPIME 2 GM in IV D5W 100 ML IV SCH (00:42)
[2021-05-22 04:40] LABS: BASOPHILS % (AUTO) 0.4 % (0.0-2.0); EOSINOPHILS % (AUTO) 1.2 % (0.0-6.0); HEMATOCRIT 41 % (39-51); HEMOGLOBIN 13.9 g/dL (13.5-17.5); LYMPHOCYTES % (AUTO) 9.5 % (20.0-44.0); MEAN CORPUSCULAR HGB CONC 34 g/dl (31.0-36.0); MEAN CORPUSCULAR VOLUME 97 fL (80-96); MONOCYTES # (AUTO) 0.5 K/uL (0.1-1.30); MONOCYTES % (AUTO) 5.2 % (2.0-12.0); NEUTROPHILS # (AUTO) 8.8 K/uL (1.8-8.9); NEUTROPHILS % (AUTO) 83.7 % (43.0-81.0); PLATELET COUNT (AUTO) 119 K/uL (150-450); RED BLOOD CELL COUNT(AUTO) 4.16 MIL/uL (4.5-6.0); WHITE BLOOD COUNT (AUTO) 10.6 K/uL (4.3-11.0)
[2021-05-22 06:19] LABS: CALCIUM, SERUM 8.7 mg/dL (8.5-10.1); CARBON DIOXIDE 27 mmol/L (21-32); CHLORIDE 109 mmol/L (98-107); CREATININE 0.9 mg/dL (0.6-1.3); GLUCOSE 124 mg/dL (74-106); POTASSIUM 4.1 mmol/L (3.5-5.1); SODIUM SERUM 143 mmol/L (136-145); UREA NITROGEN, BLOOD 41 mg/dL (7-18)
--- NOTE | 2021-05-22 08:18 | NUR ---
50% fio2 per dr. stephenson. Addendum: 05/22/21 at 0819 by KUNAL MCKEON RT Amended: Links added.
[2021-05-22] MEDS: FENTANYL CITRAT IV 2,500 MCG in IV NS 0.9% 200 ML IV PRN ×3 (08:35→21:38)
[2021-05-22] MEDS: MIDAZOLAM HCL 100 MG in IV NS 0.9% 80 ML IV PRN ×2 (08:49→23:53)
[2021-05-22] MEDS: CLOPIDOGREL BISULFATE 75 MG TABLET GT SCH (09:11)
[2021-05-22] MEDS: DEXAMETHASONE SOD PHOSPHATE 10 MG/ML VIAL IV SCH (09:11)
[2021-05-22] MEDS: PANTOPRAZOLE 40 MG/PACK PACK GT SCH (09:11)
[2021-05-22] MEDS: DOXYCYCLINE 100 MG in IV D5W 100 ML IV SCH (09:11)
[2021-05-22] MEDS: ENOXAPARIN SODIUM 40 MG/0.4 ML DISP.SYRIN SQ SCH ×2 (09:18→21:48)
--- NOTE | 2021-05-22 11:32 | NUR ---
60% fio2 due to 81% spo2. Addendum: 05/22/21 at 1133 by KUNAL MCKEON RT Amended: Links added.
[2021-05-22] MEDS: GLUCERNA 1.2 1,000 ML BOTTLE NG PRN (14:56)
--- NOTE | 2021-05-22 19:06 | NUR ---
AGILE JAVA DEVELOPER CLOSING NOTES Patient is sedated and on mechanical vent with 02 of 98%. Patient is on fentanyl drip 250 mcg and versed running at 6 mg to left upper arm. Patient noted with guerrero cath hanging to gravity with dark xiao urine. Patient turned and repositioned q2h and prn. NGTUBE connected to tube feeding at 30 cc/hour. Placement and patency checked. Will continue to monitor. Will endorse to next shift. HOB kept elevated. Bed is in lowest and locked position.
[2021-05-22] MEDS: ATORVASTATIN 40 MG TABLET GT SCH (21:47)
[2021-05-23] VITALS (28 sets, daily range): BP systolic 96–139; BP diastolic 55–77
[2021-05-23 04:38] LABS: BASOPHILS % (AUTO) 0.3 % (0.0-2.0); EOSINOPHILS % (AUTO) 1.2 % (0.0-6.0); HEMATOCRIT 38 % (39-51); HEMOGLOBIN 13.3 g/dL (13.5-17.5); LYMPHOCYTES # (AUTO) 0.8 K/uL (0.8-4.8); LYMPHOCYTES % (AUTO) 8.6 % (20.0-44.0); MEAN CORPUSCULAR HGB CONC 35 g/dl (31.0-36.0); MEAN CORPUSCULAR VOLUME 98 fL (80-96); MONOCYTES # (AUTO) 0.4 K/uL (0.1-1.30); NEUTROPHILS # (AUTO) 7.7 K/uL (1.8-8.9); NEUTROPHILS % (AUTO) 85.9 % (43.0-81.0); PLATELET COUNT (AUTO) 103 K/uL (150-450); RED BLOOD CELL COUNT(AUTO) 3.92 MIL/uL (4.5-6.0); WHITE BLOOD COUNT (AUTO) 8.9 K/uL (4.3-11.0)
[2021-05-23 05:03] LABS: CALCIUM, SERUM 7.8 mg/dL (8.5-10.1); CARBON DIOXIDE 30 mmol/L (21-32); CHLORIDE 110 mmol/L (98-107); CREATININE 0.9 mg/dL (0.6-1.3); GLUCOSE 107 mg/dL (74-106); POTASSIUM 4.3 mmol/L (3.5-5.1); SODIUM SERUM 144 mmol/L (136-145); UREA NITROGEN, BLOOD 37 mg/dL (7-18)
[2021-05-23] MEDS: BLOOD SUGAR DIAGNOSTIC 1 EACH STRIP IN SCH ×4 (06:11→23:29)
[2021-05-23] MEDS: INSULIN REGULAR, HUMAN 100 UNIT/ML 3 ML VIAL SQ PRN ×4 (06:16→23:33)
--- NOTE | 2021-05-23 07:30 | NUR ---
RN NOTES PT FOUND SEMI FOWLERS DISPLAYING NO S/S OF ACUTE DISTRESS, FLACC = 1, RIKERS = 4 AND BILATERAL RISE AND FALL OF THE CHEST OBSERVED. L UA PICC PATIENT AND INTACT. BILATERAL SOFT WRISTS APPLIED, PULSES PALPATED AND CAP REFILL < 3 SECONDS BILATERALLY. GATES CATH BELOW PATIENT DRAINING BY GRAVITY. VSS, RN WILL MONITOR AND TREAT THROUGHOUT SHIFT. SAFETY MEASURES IN PLACE, BED LOCKED AND IN LOWEST POSITION, SIDE RAILS UPX3, CALL LIGHT WITHIN REACH, BED ALARM ARMED.
--- NOTE | 2021-05-23 07:34 | NUR ---
RN NOTE CLOSING NO DISTRESS NOTED. ALL NEEDS ATTENDED. NO SIGNIFICANT CHANGES NOTED THROUGHOUT SHIFT. GLUCOSE CHANGE NOTED, CONT TO MONITOR. PT REMAINS SEDATED INTUBATED. ENDORSED TO DAY SHIFT FOR CONT OF CARE.
[2021-05-23] MEDS: FENTANYL CITRAT IV 2,500 MCG in IV NS 0.9% 200 ML IV PRN ×3 (07:36→21:38)
[2021-05-23] MEDS: PANTOPRAZOLE 40 MG/PACK PACK GT SCH (08:06)
[2021-05-23] MEDS: CLOPIDOGREL BISULFATE 75 MG TABLET GT SCH (08:06)
[2021-05-23] MEDS: DEXAMETHASONE SOD PHOSPHATE 10 MG/ML VIAL IV SCH (08:06)
[2021-05-23] MEDS: ENOXAPARIN SODIUM 40 MG/0.4 ML DISP.SYRIN SQ SCH ×2 (08:09→20:43)
[2021-05-23 09:40] LABS: ABG BASE EXCESS 3.1 mmol/L; ABG OXYGEN SATURATION 87.9 % (92.0-98.5); ABG PCO2 50.2 mmHg (35.0-45.0); ABG PH 7.383 (7.350-7.450); ABG PO2 56.8 mmHg (75.0-100.0); COHb 0.7 % (0.5-1.5); MetHb 0.2 % (0.0-1.5); O2Hb 87.1 % (94.0-97.0); SITE, ABG Right Radial; VENT MODE, BG AC 20 500 100% +8
--- NOTE | 2021-05-23 12:20 | NUR ---
MD COMMUNICATION: RN SPOKE TO MD YANCEY ABOUT PT SEDATION LEVEL AND CURRENT LEVEL OF SEDATION TITRATION. MD GAVE ORDERS: PRECEDEX IV TITRATE TO RIKERS = 3. RN ACKNOWLEDGED AND WILL ENTER DIRECTED.
[2021-05-23] MEDS: PRECEDEX 400 MCG/100 ML BOTTLE 100 ML IV PRN ×2 (13:30→23:05)
[2021-05-23] MEDS: GLUCERNA 1.2 1,000 ML BOTTLE NG PRN (14:17)
[2021-05-23] MEDS: MIDAZOLAM HCL 100 MG in IV NS 0.9% 80 ML IV PRN (17:45)
--- NOTE | 2021-05-23 19:05 | NUR ---
RECEIVED PT ON BED ORALLY INTUBATED, VENT SETTING PER MD FIO2 100% PEEP 10 SPO2 93-96% NO SIGN OF RESPIRATORY DISTRESS NOTED TELE MONITOR READS SINUS ARIEL 50-60, HAVE R NGTUBE ON PLACEMENT CHECKED RESIDUAL 0ML, WITH ONGOING GLUCERNA @ 30 ML/HR, HAVE GATES CATHETER IN PLACE WITH RACHNA YELLOW URINE DRAINING VIA GRAVITY, HAVE BILATERAL WRIST RESTRAINTS WILL CHECKED CIRCULATION, BED ON LOWEST POSITION AND LOCKED SIDE RAILS UP X2 WILL CONT TO MONITOR
--- NOTE | 2021-05-23 19:10 | NUR ---
RN NOTES PT FOUND SEMI FOWLERS DISPLAYING NO S/S OF ACUTE DISTRESS, FLACC = 0, RIKERS = 3 AND BILATERAL RISE AND FALL OF THE CHEST OBSERVED. L UA PICC PATIENT AND INTACT. BILATERAL SOFT WRISTS APPLIED, PULSES PALPATED AND CAP REFILL < 3 SECONDS BILATERALLY. GATES CATH BELOW PATIENT DRAINING BY GRAVITY. SBAR AND REPORT GIVEN TO STUDENT CAREER DEVELOPMENT SPECIALIST RN, ALL QUESTIONS ANSWERED. SAFETY MEASURES IN PLACE, BED LOCKED AND IN LOWEST POSITION, SIDE RAILS UPX3, CALL LIGHT WITHIN REACH, BED ALARM ARMED. PT ENDORSED IN STABLE CONDITION FOR VERENA.
[2021-05-23] MEDS: ATORVASTATIN 40 MG TABLET GT SCH (21:09)
[2021-05-23] MEDS: INSULIN GLARGINE, 100 UNIT/ML CARTRIDGE SQ SCH (21:37)
[2021-05-24] VITALS (48 sets, daily range): BP systolic 103–165; BP diastolic 57–92
[2021-05-24] MEDS: IV NS 0.9% 250 ML IV PRN ×2 (01:46→22:06)
[2021-05-24 04:55] LABS: BASOPHILS % (AUTO) 0.4 % (0.0-2.0); EOSINOPHILS % (AUTO) 3.2 % (0.0-6.0); HEMATOCRIT 41 % (39-51); HEMOGLOBIN 13.9 g/dL (13.5-17.5); LYMPHOCYTES # (AUTO) 0.7 K/uL (0.8-4.8); LYMPHOCYTES % (AUTO) 8.5 % (20.0-44.0); MEAN CORPUSCULAR HGB CONC 34 g/dl (31.0-36.0); MEAN CORPUSCULAR VOLUME 99 fL (80-96); MONOCYTES # (AUTO) 0.5 K/uL (0.1-1.30); MONOCYTES % (AUTO) 5.5 % (2.0-12.0); NEUTROPHILS % (AUTO) 82.4 % (43.0-81.0); PLATELET COUNT (AUTO) 98 K/uL (150-450); RED BLOOD CELL COUNT(AUTO) 4.13 MIL/uL (4.5-6.0); WHITE BLOOD COUNT (AUTO) 8.5 K/uL (4.3-11.0)
[2021-05-24 05:16] LABS: IRON, SERUM 73 ug/dl (50-175); TOTAL IRON BINDING CAPACITY 156 ug/dl (250-450)
[2021-05-24 05:20] LABS: FERRITIN 350 ng/mL (8-388)
[2021-05-24 05:21] LABS: CARBON DIOXIDE 30 mmol/L (21-32); CHLORIDE 109 mmol/L (98-107); CREATININE 0.8 mg/dL (0.6-1.3); GLUCOSE 91 mg/dL (74-106); POTASSIUM 4.3 mmol/L (3.5-5.1); SODIUM SERUM 144 mmol/L (136-145); UREA NITROGEN, BLOOD 35 mg/dL (7-18)
[2021-05-24] MEDS: BLOOD SUGAR DIAGNOSTIC 1 EACH STRIP IN SCH ×4 (06:16→23:38)
--- NOTE | 2021-05-24 06:44 | NUR ---
PT ON BED STILL ORALLY INTUBATED VENT SETTING PER MD FIO2 100% SPO2 93-95% STILL SINUS ARIEL ON MONITOR WITH HR 50-60, SEDATED WITH FENTANYL @ 200 MCG/HR VERSED @ 5 MG/HR PRECEDEX @ 0.2 MCG/KG/MIN INFUSING VIA IRISH PICC, HAVE GATES WITH RACHNA COLOR URINE 300 ML, RNGTUBE WITH ONGOING GLUCERNA@ 30ML/HR TOLERATING WELL, BED ON LOWEST POSITION AND LOCKED SIDE RAILS UP X2 CALL LIGHT WITHIN REACH WILL CONT TO MONITOR
--- NOTE | 2021-05-24 07:30 | NUR ---
RN NOTES PT FOUND SEMI FOWLERS DISPLAYING NO S/S OF ACUTE DISTRESS, FLACC = 0, RIKERS = 3 AND BILATERAL RISE AND FALL OF THE CHEST OBSERVED. L UA PICC AND R WRIST 20G IV PATIENT AND INTACT . BILATERAL SOFT WRISTS APPLIED, PULSES PALPATED AND CAP REFILL < 3 SECONDS BILATERALLY. GATES CATH BELOW PATIENT DRAINING BY GRAVITY. VSS, RN WILL MONITOR AND TREAT THROUGHOUT SHIFT. SAFETY MEASURES IN PLACE, BED LOCKED AND IN LOWEST POSITION, SIDE RAILS UPX3, CALL LIGHT WITHIN REACH, BED ALARM ARMED.
[2021-05-24] MEDS: DEXAMETHASONE SOD PHOSPHATE 10 MG/ML VIAL IV SCH (08:11)
[2021-05-24] MEDS: CLOPIDOGREL BISULFATE 75 MG TABLET GT SCH (08:11)
[2021-05-24] MEDS: PANTOPRAZOLE 40 MG/PACK PACK GT SCH (08:11)
[2021-05-24] MEDS: ENOXAPARIN SODIUM 40 MG/0.4 ML DISP.SYRIN SQ SCH ×2 (08:13→20:42)
[2021-05-24 09:38] LABS: ABG BASE EXCESS 2.7 mmol/L; ABG OXYGEN SATURATION 89.3 % (92.0-98.5); ABG PCO2 49.1 mmHg (35.0-45.0); ABG PH 7.384 (7.350-7.450); ABG PO2 58.8 mmHg (75.0-100.0); AaDO2 605.1 mmHg; COHb 0.3 % (0.5-1.5); MetHb 0.2 % (0.0-1.5); O2Hb 88.9 % (94.0-97.0); SITE, ABG Left Radial; VENT MODE, BG ac20 500 100% +10
--- NOTE | 2021-05-24 10:00 | NUR ---
HOSPITALIST VISIT AGUSTINA ADAME VISITED PT. SPOKE TO RN ABOUT PT CONSTIPATION, DNP GAVE ORDERS: COLACE 100 MG DAILY. RN ACKNOWLEDGED AND WILL ENTER ORDERS DIRECTED.
[2021-05-24] MEDS ORDERED: GLUCERNA 1.2 1,000 ML BOTTLE NG SCH (10:30)
[2021-05-24] MEDS: FENTANYL CITRAT IV 2,500 MCG in IV NS 0.9% 200 ML IV PRN ×2 (11:16→20:02)
[2021-05-24] MEDS: DOCUSATE SODIUM LIQ 100 MG/10 ML UDC NG SCH (11:46)
[2021-05-24] MEDS: PRECEDEX 400 MCG/100 ML BOTTLE 100 ML IV PRN ×3 (13:15→20:07)
[2021-05-24] MEDS: INSULIN REGULAR, HUMAN 100 UNIT/ML 3 ML VIAL SQ PRN ×2 (17:49→23:39)
[2021-05-24] MEDS: MIDAZOLAM HCL 100 MG in IV NS 0.9% 80 ML IV PRN (18:16)
--- NOTE | 2021-05-24 19:10 | NUR ---
RECEIVED PT ON BED ORALLY INTUBATED, VENT SETTING PER MD FIO2 100% PEEP 12 SPO2 93-96% NO SIGN OF RESPIRATORY DISTRESS NOTED TELE MONITOR READS SINUS ARIEL 50-60, HAVE L NGTUBE ON PLACEMENT CHECKED RESIDUAL 0ML, WITH ONGOING GLUCERNA @ 40 ML/HR,ON FENTANYL 300 MCG/HR, VERSED @ 7 MG/HR AND PRECEDEX @ 1.5 MCG/KG/MIN INFUSING VIA IRISH PICC, HAVE GATES CATHETER IN PLACE WITH RACHNA YELLOW URINE DRAINING VIA GRAVITY, HAVE BILATERAL WRIST RESTRAINTS WILL CHECKED CIRCULATION, BED ON LOWEST POSITION AND LOCKED SIDE RAILS UP X2 WILL CONT TO MONITOR
--- NOTE | 2021-05-24 19:25 | NUR ---
RN NOTES PT FOUND SEMI FOWLERS DISPLAYING NO S/S OF ACUTE DISTRESS, FLACC = 0, RIKERS = 3 AND BILATERAL RISE AND FALL OF THE CHEST OBSERVED. L UA PICC PATIENT AND INTACT. BILATERAL SOFT WRISTS APPLIED, PULSES PALPATED AND CAP REFILL < 3 SECONDS BILATERALLY. GATES CATH BELOW PATIENT DRAINING BY GRAVITY. SBAR AND REPORT GIVEN TO RECLAMATION KETTLE TENDER RN, ALL QUESTIONS ANSWERED. SAFETY MEASURES IN PLACE, BED LOCKED AND IN LOWEST POSITION, SIDE RAILS UPX3, CALL LIGHT WITHIN REACH, BED ALARM ARMED. PT ENDORSED IN STABLE CONDITION FOR VERENA.
[2021-05-24] MEDS: ATORVASTATIN 40 MG TABLET GT SCH (21:31)
[2021-05-24] MEDS: INSULIN GLARGINE, 100 UNIT/ML CARTRIDGE SQ SCH (21:31)
[2021-05-25] VITALS (40 sets, daily range): BP systolic 95–153; BP diastolic 50–86
[2021-05-25] MEDS: PRECEDEX 400 MCG/100 ML BOTTLE 100 ML IV PRN ×6 (04:01→20:25)
[2021-05-25] MEDS: FENTANYL CITRAT IV 2,500 MCG in IV NS 0.9% 200 ML IV PRN ×3 (04:48→21:40)
[2021-05-25 04:51] LABS: BASOPHILS % (AUTO) 0.2 % (0.0-2.0); EOSINOPHILS % (AUTO) 3.8 % (0.0-6.0); HEMATOCRIT 44 % (39-51); LYMPHOCYTES # (AUTO) 0.7 K/uL (0.8-4.8); LYMPHOCYTES % (AUTO) 8.1 % (20.0-44.0); MEAN CORPUSCULAR HGB CONC 34 g/dl (31.0-36.0); MEAN CORPUSCULAR VOLUME 98 fL (80-96); MONOCYTES # (AUTO) 0.5 K/uL (0.1-1.30); MONOCYTES % (AUTO) 5.7 % (2.0-12.0); NEUTROPHILS % (AUTO) 82.2 % (43.0-81.0); PLATELET COUNT (AUTO) 97 K/uL (150-450); RED BLOOD CELL COUNT(AUTO) 4.49 MIL/uL (4.5-6.0); WHITE BLOOD COUNT (AUTO) 8.5 K/uL (4.3-11.0)
[2021-05-25] MEDS: BLOOD SUGAR DIAGNOSTIC 1 EACH STRIP IN SCH ×4 (05:31→23:02)
[2021-05-25] MEDS: INSULIN REGULAR, HUMAN 100 UNIT/ML 3 ML VIAL SQ PRN ×4 (05:32→23:04)
[2021-05-25 06:34] LABS: CREATININE 0.9 mg/dL (0.6-1.3); POTASSIUM 4.4 mmol/L (3.5-5.1)
[2021-05-25 06:56] LABS: CALCIUM, SERUM 7.8 mg/dL (8.5-10.1)
--- NOTE | 2021-05-25 07:30 | NUR ---
welder gas tungsten arc OPENING NOTES Patient received on mechanical vent setting of tv 500 fio2 of 100 peep of 14 ac 20 with o2 saturation of 98%. Patient is sedated and on fentanyl drip 300 mcg, versed 7 mg precedex 1.2 to left upper arm. Patient noted with guerrero cath hanging to gravity. Left nare ng tube running at 45 ml/hour. Will contiinue to monitor. HOB kept elevated.
[2021-05-25] MEDS: DOCUSATE SODIUM LIQ 100 MG/10 ML UDC NG SCH (08:48)
[2021-05-25] MEDS: DEXAMETHASONE SOD PHOSPHATE 10 MG/ML VIAL IV SCH (08:48)
[2021-05-25] MEDS: CLOPIDOGREL BISULFATE 75 MG TABLET GT SCH (08:48)
[2021-05-25] MEDS: PANTOPRAZOLE 40 MG/PACK PACK GT SCH (08:48)
[2021-05-25] MEDS: ENOXAPARIN SODIUM 40 MG/0.4 ML DISP.SYRIN SQ SCH ×2 (08:55→21:21)
[2021-05-25] MEDS: MIDAZOLAM HCL 100 MG in IV NS 0.9% 80 ML IV PRN (10:25)
[2021-05-25 12:14] LABS: ABG BASE EXCESS 4.1 mmol/L; ABG OXYGEN SATURATION 88.1 % (92.0-98.5); ABG PCO2 45.5 mmHg (35.0-45.0); ABG PH 7.427 (7.350-7.450); ABG PO2 54.7 mmHg (75.0-100.0); AaDO2 540.4 mmHg; COHb 0.3 % (0.5-1.5); MetHb 0.2 % (0.0-1.5); O2Hb 87.7 % (94.0-97.0); SITE, ABG Right Radial; VENT MODE, BG AC 20 500 90% +14
--- NOTE | 2021-05-25 16:00 | NUR ---
Patient noted with Tube feeding residual of 450 cc. Tube feeding placed on hold. PEPE Stevenson aware and ordered to hold feedings.
--- NOTE | 2021-05-25 19:09 | NUR ---
plant tender CLOSING NOTES Patient on mechanical vent setting of tv 450 fio2 of 100 peep of 14 ac 20 with o2 saturation of 94%. Patient is sedated and on fentanyl drip 300 mcg, versed 7 mg precedex 1.2 to left upper arm. Patient noted with guerrero cath hanging to gravity. Left nare ng tube clamped due to residual of 450 cc. Endorsed to next shift to monitor. HOB kept elevated.
[2021-05-25] MEDS: INSULIN GLARGINE, 100 UNIT/ML CARTRIDGE SQ SCH (22:00)
[2021-05-25] MEDS: ATORVASTATIN 40 MG TABLET GT SCH (22:05)
[2021-05-26] VITALS (36 sets, daily range): BP systolic 94–131; BP diastolic 50–73
[2021-05-26] MEDS: PRECEDEX 400 MCG/100 ML BOTTLE 100 ML IV PRN ×7 (00:30→23:50)
[2021-05-26] MEDS: MIDAZOLAM HCL 100 MG in IV NS 0.9% 80 ML IV PRN ×2 (00:31→14:34)
[2021-05-26 04:46] LABS: CALCIUM, SERUM 7.5 mg/dL (8.5-10.1); CREATININE 0.8 mg/dL (0.6-1.3)
[2021-05-26] MEDS: BLOOD SUGAR DIAGNOSTIC 1 EACH STRIP IN SCH ×4 (05:22→23:03)
--- NOTE | 2021-05-26 07:30 | NUR ---
milk powder grinder OPENING NOTES Patient on mechanical vent setting of tv 450 fio2 of 100 peep of 14 ac 20 with o2 saturation of 93%. Patient is sedated and on fentanyl drip 300 mcg, versed 7 mg precedex 1.2 to left upper arm. Patient noted with guerrero cath hanging to gravity. Left nare ng tube clamped. Residual checked and noted with 400 cc. Continue to hold Tube feeding.
[2021-05-26] MEDS: FENTANYL CITRAT IV 2,500 MCG in IV NS 0.9% 200 ML IV PRN ×3 (07:46→21:20)
--- NOTE | 2021-05-26 09:23 | NUR ---
WOUND CARE CONSULT: REVIEWED CHART, NURSING DOCUMENTATION AND PHOTO WHICH INDICATES SACRAL DEEP TISSUE INJURY IN EVOLUTION. PT NOTED TO HAVE MULTIPLE CO-MORBIDITIES INCLUDING RESPIRATORY FAILURE SECONDARY TO COVID 19 PNEUMONIA (CURRENTLY INTUBATED), DIABETES, STROKE, THROMBOCYTOPENIA AND ENCEPHALOPATHY. DUE TO MULTIPLE CO-MORBIDITIES, FURTHER SKIN BREAKDOWN MAY BE UNAVOIDABLE. PER CHART, PT WAS FOUND DOWN ON THE GROUND BY FAMILY AT HOME. RECOMMENDATIONS MADE FOR WOUND CARE AND SKIN PROTECTION. DISCUSSED WITH NURSING STAFF. SURGICAL CONSULT CALLED TO DR DANY GUO. PT IS ON [facility] BED. MD IN AGREEMENT WITH PLAN OF CARE.
[2021-05-26] MEDS ORDERED: Z GUARD REMEDY 4 OZ OINT TP PRN (09:30)
[2021-05-26] MEDS: DOCUSATE SODIUM LIQ 100 MG/10 ML UDC NG SCH (10:07)
[2021-05-26] MEDS: PANTOPRAZOLE 40 MG/PACK PACK GT SCH (10:07)
[2021-05-26] MEDS: DEXAMETHASONE SOD PHOSPHATE 10 MG/ML VIAL IV SCH (10:07)
[2021-05-26] MEDS: Z GUARD REMEDY 4 OZ OINT TP SCH (10:07)
[2021-05-26] MEDS: CLOPIDOGREL BISULFATE 75 MG TABLET GT SCH (10:07)
[2021-05-26] MEDS: ENOXAPARIN SODIUM 40 MG/0.4 ML DISP.SYRIN SQ SCH ×2 (10:08→21:14)
[2021-05-26] MEDS: INSULIN REGULAR, HUMAN 100 UNIT/ML 3 ML VIAL SQ PRN ×2 (13:42→17:54)
--- NOTE | 2021-05-26 17:00 | NUR ---
Peep changed to 16 with remainder of the setting remaining the same.
--- NOTE | 2021-05-26 19:34 | NUR ---
congregational care pastor CLOSING NOTES Patient on mechanical vent setting of tv 450 fio2 of 100 peep of 16 ac 20 with o2 saturation of 97%. Patient is sedated and on fentanyl drip 300 mcg, versed 7 mg precedex 1.2 to left upper arm. Patient noted with guerrero cath hanging to gravity. Left nare ng tube clamped. Residual checked and noted with 400 cc during shift. Continue to hold Tube feeding.Endorse to next shift for VERENA.Son Leana De aL O changed his dad's code status to dnr.Witnessed by two nurses.
[2021-05-26] MEDS: ATORVASTATIN 40 MG TABLET GT SCH (21:16)
--- NOTE | 2021-05-26 21:22 | NUR ---
SHOWER DOORS AND PANELS FABRICATOR SON AT BEDSIDE; UPDATED ON PLAN OF CARE
--- NOTE | 2021-05-26 21:34 | NUR ---
TRACK PATROL SON REQUESTED A VISIT FROM A CRYPTOGRAPHIC TECHNICIAN FOR A FINAL BLESSING. WILL PLACE CALLS TO CHECK FOR AVAILABILITY.
[2021-05-26] MEDS: INSULIN GLARGINE, 100 UNIT/ML CARTRIDGE SQ SCH (22:00)
--- NOTE | 2021-05-26 22:19 | NUR ---
TWISTER DOFFER COMMUNICATIONS CONSULTANT AT BEDSIDE; FAMILY MADE AWARE
[2021-05-27] VITALS (32 sets, daily range): BP systolic 84–124; BP diastolic 45–67
[2021-05-27] MEDS: MIDAZOLAM HCL 100 MG in IV NS 0.9% 80 ML IV PRN ×2 (04:40→19:11)
[2021-05-27] MEDS: BLOOD SUGAR DIAGNOSTIC 1 EACH STRIP IN SCH ×4 (06:20→23:53)
[2021-05-27] MEDS: PRECEDEX 400 MCG/100 ML BOTTLE 100 ML IV PRN ×5 (07:46→23:54)
--- NOTE | 2021-05-27 07:50 | NUR ---
RN NOTE Patient sedated, on IV fentanyl drip 300 mcg, versed 7 mg precedex 1.2 to left upper arm. Pt with ETT with mechanical vent setting of tv 450 fio2 of 90 peep of 14 ac 20 with o2 saturation of 89%. Ventura cath in place draining well. Left nare ng tube clamped at this time.
[2021-05-27] MEDS: FENTANYL CITRAT IV 2,500 MCG in IV NS 0.9% 200 ML IV PRN ×2 (08:42→17:58)
[2021-05-27] MEDS: DEXAMETHASONE SOD PHOSPHATE 10 MG/ML VIAL IV SCH (09:06)
[2021-05-27] MEDS: DOCUSATE SODIUM LIQ 100 MG/10 ML UDC NG SCH (09:06)
[2021-05-27] MEDS: PANTOPRAZOLE 40 MG/PACK PACK GT SCH (09:06)
[2021-05-27] MEDS: ENOXAPARIN SODIUM 40 MG/0.4 ML DISP.SYRIN SQ SCH ×2 (09:09→21:12)
[2021-05-27] MEDS: CLOPIDOGREL BISULFATE 75 MG TABLET GT SCH (09:10)
[2021-05-27] MEDS: Z GUARD REMEDY 4 OZ OINT TP SCH (09:11)
[2021-05-27 11:51] LABS: BASOPHILS # (AUTO) 0.1 K/uL (0.0-0.2); BASOPHILS % (AUTO) 0.7 % (0.0-2.0); EOSINOPHILS % (AUTO) 3.2 % (0.0-6.0); HEMATOCRIT 46 % (39-51); HEMOGLOBIN 15.3 g/dL (13.5-17.5); LYMPHOCYTES # (AUTO) 0.5 K/uL (0.8-4.8); LYMPHOCYTES % (AUTO) 2.9 % (20.0-44.0); MEAN CORPUSCULAR HGB CONC 33 g/dl (31.0-36.0); MEAN CORPUSCULAR VOLUME 99 fL (80-96); MONOCYTES # (AUTO) 0.5 K/uL (0.1-1.30); MONOCYTES % (AUTO) 3.3 % (2.0-12.0); NEUTROPHILS # (AUTO) 14.7 K/uL (1.8-8.9); NEUTROPHILS % (AUTO) 89.9 % (43.0-81.0); PLATELET COUNT (AUTO) 93 K/uL (150-450); RED BLOOD CELL COUNT(AUTO) 4.66 MIL/uL (4.5-6.0); WHITE BLOOD COUNT (AUTO) 16.3 K/uL (4.3-11.0)
[2021-05-27 12:09] LABS: CALCIUM, SERUM 8.6 mg/dL (8.5-10.1); CARBON DIOXIDE 28 mmol/L (21-32); CHLORIDE 106 mmol/L (98-107); CREATININE 1.4 mg/dL (0.6-1.3); GLUCOSE 113 mg/dL (74-106); POTASSIUM 5.4 mmol/L (3.5-5.1); SODIUM SERUM 142 mmol/L (136-145); UREA NITROGEN, BLOOD 48 mg/dL (7-18)
--- NOTE | 2021-05-27 19:30 | NUR ---
RN NOTE Patient sedated in bed, no major changes in condition this shift. on IV fentanyl drip 300 mcg, versed 7 mg precedex 1.2 to left upper arm. Pt with ETT with mechanical vent setting of tv 450 fio2 of 90 peep of 14 ac 20 with o2 saturation of 89%. Ventura cath in place draining well. Left nare ng tube clamped at this time. due medications given. needs attended. morning and evening care given.
[2021-05-27] MEDS: ACETAMINOPHEN 650 MG/20.3 ML UDC GT PRN (20:00)
[2021-05-27] MEDS: ATORVASTATIN 40 MG TABLET GT SCH (21:15)
[2021-05-27] MEDS: INSULIN GLARGINE, 100 UNIT/ML CARTRIDGE SQ SCH (22:00)
[2021-05-27] MEDS: PHENYLEPHRINE 50 MG in IV NS 0.9% 245 ML IV PRN (22:16)
[2021-05-27] MEDS: INSULIN REGULAR, HUMAN 100 UNIT/ML 3 ML VIAL SQ PRN (23:57)
[2021-05-28] VITALS (89 sets, daily range): BP systolic 101–139; BP diastolic 54–68
[2021-05-28] MEDS: FENTANYL CITRAT IV 2,500 MCG in IV NS 0.9% 200 ML IV PRN ×3 (02:25→21:15)
[2021-05-28] MEDS: PRECEDEX 400 MCG/100 ML BOTTLE 100 ML IV PRN ×5 (03:15→20:45)
[2021-05-28 04:35] LABS: BASOPHILS % (AUTO) 0.2 % (0.0-2.0); EOSINOPHILS % (AUTO) 0.1 % (0.0-6.0); HEMATOCRIT 44 % (39-51); HEMOGLOBIN 14.8 g/dL (13.5-17.5); LYMPHOCYTES # (AUTO) 0.5 K/uL (0.8-4.8); LYMPHOCYTES % (AUTO) 2.4 % (20.0-44.0); MEAN CORPUSCULAR HGB CONC 33 g/dl (31.0-36.0); MEAN CORPUSCULAR VOLUME 99 fL (80-96); MONOCYTES # (AUTO) 1.3 K/uL (0.1-1.30); MONOCYTES % (AUTO) 6.9 % (2.0-12.0); NEUTROPHILS # (AUTO) 17.5 K/uL (1.8-8.9); NEUTROPHILS % (AUTO) 90.4 % (43.0-81.0); PLATELET COUNT (AUTO) 125 K/uL (150-450); RED BLOOD CELL COUNT(AUTO) 4.45 MIL/uL (4.5-6.0); WHITE BLOOD COUNT (AUTO) 19.3 K/uL (4.3-11.0)
[2021-05-28 05:35] LABS: CALCIUM, SERUM 7.7 mg/dL (8.5-10.1); CARBON DIOXIDE 27 mmol/L (21-32); CHLORIDE 105 mmol/L (98-107); CREATININE 2.8 mg/dL (0.6-1.3); GLUCOSE 170 mg/dL (74-106); SODIUM SERUM 142 mmol/L (136-145); UREA NITROGEN, BLOOD 73 mg/dL (7-18)
[2021-05-28] MEDS: BLOOD SUGAR DIAGNOSTIC 1 EACH STRIP IN SCH ×3 (06:23→17:15)
[2021-05-28] MEDS: INSULIN REGULAR, HUMAN 100 UNIT/ML 3 ML VIAL SQ PRN ×3 (06:27→17:15)
--- NOTE | 2021-05-28 07:30 | NUR ---
BILINGUAL CUSTOMER SERVICE SPECIALIST AM NOTES RECEIVED PT FOR CONTINUITY OF CARE. PATIENT SEDATED IN NO S/SX OF ACUTE DISTRESS AT THIS TIME; CURRENTLY WITH TRACH/ETT 12/07 TO MECHANICAL VENT; SETTING PRESCRIBED, WITH 02 SAT >97% AT THIS TIME. RECEIVED PT WITH ONGOING DRIPS FOLLOWS: FENTANYL AT 300MCG, VERSED 7 MCG, PRECEDEX 1.2 MCG, RIYA 0.5 MCG. ALL RUNNING, MONITORED AND ADJUSTED PER PROTOCOL. WITH NGT ON L NARE SECURED AND INTACT CONNECTED CLAMPED AT THIS TIME RESIDUAL >150 ML. WITH GATES CATH IN PLACE, YELLOW URINE OUTPUT NOTED. WILL ENSURE SAFETY MEASURES WITHIN THE SHIFT. PATIENT BED ALARM IS ON. HEAD OF BED ELEVATED. BED IS LOCKED, IN LOWEST POSITION AND SIDE RAILS UP. CALL LIGHT WITHIN REACH OF THE PATIENT. APPLICABLE ISOLATION PRECAUTIONS IN PLACE. WILL CONTINUE TO MONITOR AND REASSESS FOR ANY CHANGES AND WILL CARRY OUT ANY ONGOING AND ACTIVE MD ORDER.
[2021-05-28] MEDS: DEXAMETHASONE SOD PHOSPHATE 10 MG/ML VIAL IV SCH (09:23)
[2021-05-28] MEDS: DOCUSATE SODIUM LIQ 100 MG/10 ML UDC NG SCH (09:23)
[2021-05-28] MEDS: PANTOPRAZOLE 40 MG/PACK PACK GT SCH (09:23)
[2021-05-28] MEDS: ACETAMINOPHEN 650 MG/20.3 ML UDC GT PRN (09:23)
[2021-05-28] MEDS: Z GUARD REMEDY 4 OZ OINT TP SCH (09:24)
--- NOTE | 2021-05-28 10:27 | NUR ---
RN NOTES DR. ADAME, NOTIFIED OF RESIDUAL >150 ML. PER HIM. HOLD FEEDING. MAY STILL GIVE LOVENOX AND PLAVIX
[2021-05-28] MEDS: CLOPIDOGREL BISULFATE 75 MG TABLET GT SCH (10:35)
[2021-05-28] MEDS: ENOXAPARIN SODIUM 40 MG/0.4 ML DISP.SYRIN SQ SCH ×2 (10:36→21:56)
[2021-05-28] MEDS: MIDAZOLAM HCL 100 MG in IV NS 0.9% 80 ML IV PRN (10:58)
--- NOTE | 2021-05-28 11:36 | NUR ---
RN NOTES TEMPERATURE AT 100.3. COOLING MEASURES APPLIED
--- NOTE | 2021-05-28 12:00 | NUR ---
RN NOTES PATIENT NGT TO LIS. 300 ML BLACKISH DRAINAGE OUTPUT NOTED.
--- NOTE | 2021-05-28 13:00 | NUR ---
RN NOTES REPORT GIVEN TO NOHEMY ALBARADO
--- NOTE | 2021-05-28 14:00 | NUR ---
RN NOTES REPORT RECEIVED FROM JORDY WEEMS FOR CONTINUITY OF CARE .
[2021-05-28] MEDS: PHENYLEPHRINE 50 MG in IV NS 0.9% 245 ML IV PRN (14:01)
[2021-05-28] MEDS ORDERED: FLUCONAZOLE (100 MG) 100 MG TABLET PO SCH (15:30)
[2021-05-28] MEDS: MEROPENEM 500 MG in IV NS 0.9% 50 ML IV SCH (16:00)
[2021-05-28] MEDS: DOXYCYCLINE 100 MG in IV D5W 100 ML IV SCH (17:03)
--- NOTE | 2021-05-28 18:30 | NUR ---
RN NOTES PT REMAINS INTUBATED, AND SEDATED , ON VERSED AND FENTANYL AND PRECEDEX , ON RIYA AT .02 MCG/KG/MIN FOR BP SUPPORT, NGT TO LIS WITH LARGE AMOUNT OF DARK BROWNISH STOMACH DRAINAGE , WILL ENDORSE TO MANAGER CLINICAL APPLICATIONS NURSE FOR CONTINUITY OF CARE
--- NOTE | 2021-05-28 19:30 | NUR ---
RN NOTES PT RECEIVED IN BED. PT IS TRACH/VENT, TOLERATING CURRENT SETTINGS WELL. PT IS CURRENTLY SEDATED WITH NO SIGNS OR SYMPTOMS OF DISTRESS. PT ON FOLLOWING DRIPS: FENTANYL @ 300MCG/HR, VERSED @ 7 MCG/HR, PRECEDEX @ 1.2 MCG/KG/HR, AND RIYA @ 0.2 MCG/KG/MIN. NGT ON L NARE SECURED AND INTACT, CLAMPED WITH LARGE AMOUNTS OF DARK BROWNISH RESIDUAL. GATES CATH NOTED, YELLOW URINE OUTPUT DRAINING. IV ACCESS NOTED ON LEFT UPPER ARM PICC AND RIGHT AC. LINES FLUSHED, PATENT, AND INTACT WITH NO SIGNS OF INFILTRATION. ALL SAFETY MEASURES IMPLEMENTED. BED ALARM ON, HOB ELEVATED, BED LOCKED AND IN LOWEST POSITION, AND SIDE RAILS UP. WILL CONTINUE TO MONITOR AND ASSESS FOR ANY CHANGS DURING SHIFT.
[2021-05-28] MEDS: FLUCONAZOLE IN NS,PREMIX 100 MG in PREMIX 1 EA IV SCH ×2 (19:54)
[2021-05-28] MEDS: INSULIN GLARGINE, 100 UNIT/ML CARTRIDGE SQ SCH (21:36)
[2021-05-28] MEDS: ATORVASTATIN 40 MG TABLET GT SCH (21:56)
--- NOTE | 2021-05-28 21:58 | NUR ---
RT sputum sample collected and sent to lab
[2021-05-28 22:40] LABS: BILIRUBIN,URINE NEGATIVE (NEGATIVE); COLOR,URINE YELLOW (YELLOW); LEUKOCYTE ESTERASE ,URINE NEGATIVE (NEGATIVE); NITRITE, URINE NEGATIVE (NEGATIVE); PH,URINE 5.5 (5.0-8.0); PROTEIN,URINE TRACE mg/dl (NEGATIVE); UGLUCOSE NEGATIVE (NEGATIVE)
[2021-05-29] VITALS (67 sets, daily range): BP systolic 72–130; BP diastolic 40–72
[2021-05-29] MEDS: PRECEDEX 400 MCG/100 ML BOTTLE 100 ML IV PRN ×4 (00:36→12:52)
[2021-05-29] MEDS: ACETAMINOPHEN 650 MG/20.3 ML UDC GT PRN (00:48)
[2021-05-29] MEDS: BLOOD SUGAR DIAGNOSTIC 1 EACH STRIP IN SCH ×3 (00:58→12:00)
[2021-05-29] MEDS: INSULIN REGULAR, HUMAN 100 UNIT/ML 3 ML VIAL SQ PRN ×2 (01:03→05:48)
[2021-05-29] MEDS: MIDAZOLAM HCL 100 MG in IV NS 0.9% 80 ML IV PRN (01:34)
[2021-05-29] MEDS: MEROPENEM 500 MG in IV NS 0.9% 50 ML IV SCH ×2 (03:56→16:30)
[2021-05-29 04:33] LABS: BASOPHILS # (AUTO) 0.1 K/uL (0.0-0.2); BASOPHILS % (AUTO) 0.4 % (0.0-2.0); HEMATOCRIT 42 % (39-51); HEMOGLOBIN 14.1 g/dL (13.5-17.5); LYMPHOCYTES # (AUTO) 0.5 K/uL (0.8-4.8); LYMPHOCYTES % (AUTO) 3.7 % (20.0-44.0); MEAN CORPUSCULAR HGB CONC 33 g/dl (31.0-36.0); MEAN CORPUSCULAR VOLUME 100 fL (80-96); MONOCYTES # (AUTO) 0.6 K/uL (0.1-1.30); MONOCYTES % (AUTO) 4.1 % (2.0-12.0); NEUTROPHILS # (AUTO) 12.5 K/uL (1.8-8.9); NEUTROPHILS % (AUTO) 91.8 % (43.0-81.0); PLATELET COUNT (AUTO) 86 K/uL (150-450); RED BLOOD CELL COUNT(AUTO) 4.23 MIL/uL (4.5-6.0); WHITE BLOOD COUNT (AUTO) 13.6 K/uL (4.3-11.0)
[2021-05-29] MEDS: DOXYCYCLINE 100 MG in IV D5W 100 ML IV SCH ×2 (04:59→16:31)
[2021-05-29 06:06] LABS: CALCIUM, SERUM 7.5 mg/dL (8.5-10.1); CARBON DIOXIDE 28 mmol/L (21-32); CHLORIDE 111 mmol/L (98-107); CREATININE 2.5 mg/dL (0.6-1.3); GLUCOSE 194 mg/dL (74-106); POTASSIUM 5.2 mmol/L (3.5-5.1); SODIUM SERUM 147 mmol/L (136-145)
[2021-05-29 06:08] LABS: UREA NITROGEN, BLOOD 80 mg/dL (7-18)
--- NOTE | 2021-05-29 06:23 | NUR ---
RN NOTE SPOKE WITH DR. FONTAINE ABOUT LAB REPORTED BUN VALUE OF 80. DR. FONTAINE ORDERED TO START 0.9% NS AT 75 CC/HR. ORDER NOTED AND CARRIED OUT.
[2021-05-29] MEDS: FENTANYL CITRAT IV 2,500 MCG in IV NS 0.9% 200 ML IV PRN (06:26)
[2021-05-29] MEDS ORDERED: IV NS 0.9% 1,000 ML IV PRN (06:30)
--- NOTE | 2021-05-29 06:52 | NUR ---
RN NOTES NO SIGNIFICANT CHANGES IN PT CONDITION DURING SHIFT. PT IS TRACH/VENT, TOLERATING CURRENT SETTINGS WELL. PT IS CURRENTLY SEDATED WITH NO SIGNS OR SYMPTOMS OF DISTRESS. PT ON FOLLOWING DRIPS: FENTANYL @ 300MCG/HR, VERSED @ 7 MCG/HR, PRECEDEX @ 1.2 MCG/KG/HR, AND RIYA @ 0.2 MCG/KG/MIN. NGT ON L NARE SECURED AND INTACT, CLAMPED WITH LARGE AMOUNTS OF DARK BROWNISH RESIDUAL. GATES CATH NOTED, YELLOW URINE OUTPUT DRAINING. IV ACCESS NOTED ON LEFT UPPER ARM PICC AND RIGHT AC. LINES FLUSHED, PATENT, AND INTACT WITH NO SIGNS OF INFILTRATION. ALL SAFETY MEASURES IMPLEMENTED. BED ALARM ON, HOB ELEVATED, BED LOCKED AND IN LOWEST POSITION, AND SIDE RAILS UP. ALL DUE MEDS GIVEN ORDERED. PT KEPT CLEAN AND COMFORTABLE. WILL ENDORSE TO MORNING SHIFT RN FOR VERENA.
--- NOTE | 2021-05-29 07:05 | NUR ---
RN NOTES PT RECEIVED IN BED , INTUBATED AND SEDATED, TOLERATING CURRENT VENT SETTINGS WELL. PT IS CURRENTLY SEDATED WITH NO SIGNS OR SYMPTOMS OF DISTRESS. PT ON FOLLOWING DRIPS: FENTANYL @ 300MCG/HR, VERSED @ 7 MCG/HR, PRECEDEX @ 1.2 MCG/KG/HR, AND RIYA @ 0.2 MCG/KG/MIN, NS AT 125CC/HR RUNNING NGT ON L NARE SECURED AND INTACT, ATTACHED TO LIS, WITH LARGE AMOUNTS OF DARK BROWNISH GASTRIC DRAINAGE. GATES DRAINING TO GRAVITY, WITH YELLOW URINE OUTPUT , IV ACCESS NOTED ON LEFT UPPER ARM PICC AND RIGHT AC. LINES FLUSHED, PATENT, AND INTACT WITH NO SIGNS OF INFILTRATION. ALL SAFETY MEASURES IMPLEMENTED. BED ALARM ON, HOB ELEVATED, BED LOCKED AND IN LOWEST POSITION, AND SIDE RAILS UP. WILL CONTINUE TO MONITOR .
[2021-05-29 07:50] LABS: BACTERIA,URINE Rare /HPF (None Seen); SQUAMOUS EPITHELIAL CELL,UR Rare /HPF (None Seen); URIC ACID CRYSTALS,URINE Moderate /HPF (None Seen); WBC,URINE 0-2 /HPF (0-3)
[2021-05-29] MEDS: DOCUSATE SODIUM LIQ 100 MG/10 ML UDC NG SCH (08:16)
[2021-05-29] MEDS: PANTOPRAZOLE 40 MG/PACK PACK GT SCH (08:16)
[2021-05-29] MEDS: CLOPIDOGREL BISULFATE 75 MG TABLET GT SCH (08:17)
--- NOTE | 2021-05-29 08:30 | NUR ---
RN NOTES CALL RECEIVED FROM PT'S SON ( CHAPIS ZAYAS ), HE STATED THAT HE TALKED TO HIS FAMILY AND THE FINAL DECISION IS TO PLACE PT ON COMFORT CARE . BRUCE CANTU AND DR YANCEY NOTIFIED.
[2021-05-29] MEDS: DEXAMETHASONE SOD PHOSPHATE 10 MG/ML VIAL IV SCH (08:41)
[2021-05-29] MEDS: ENOXAPARIN SODIUM 40 MG/0.4 ML DISP.SYRIN SQ SCH (08:42)
[2021-05-29] MEDS: FLUCONAZOLE IN NS,PREMIX 100 MG in PREMIX 1 EA IV SCH ×2 (08:42)
[2021-05-29] MEDS: Z GUARD REMEDY 4 OZ OINT TP SCH (08:43)
[2021-05-29 09:06] LABS: ABG BASE EXCESS -1.3 mmol/L; ABG OXYGEN SATURATION 94.2 % (92.0-98.5); ABG PCO2 62.9 mmHg (35.0-45.0); ABG PH 7.256 (7.350-7.450); ABG PO2 76.6 mmHg (75.0-100.0); AaDO2 573.5 mmHg; COHb 0.2 % (0.5-1.5); MetHb 0.4 % (0.0-1.5); O2Hb 93.6 % (94.0-97.0); VENT MODE, BG AC 20 450 100% +16
[2021-05-29] MEDS ORDERED: MORPHINE SULFATE INJ 4 MG/ML DISP.SYRIN IV ONE (11:30)
--- NOTE | 2021-05-29 12:11 | NUR ---
RN NOTES PT ON COMFORT CARE, ALL MEDS AND ACCU D/JOCELYN PER SLIMER ORDER .
[2021-05-29 12:54] LABS: BAND % (MANUAL) 2 % (0.0-5.0); LYMPHOCYTES % (MANUAL) 4 % (16-48); MONOCYTES % (MANUAL) 4 % (0-11.0); NEUTROPHILS % (MANUAL) 90 (42-76)
--- NOTE | 2021-05-29 13:00 | NUR ---
RN NOTES PT ON COMFORT CARE , ON MORPHINE GTT PER ENVIRONMENTAL ASSOCIATE ORDER , CONTINUE TO TO PROVIDE COMFORT CARE .
--- NOTE | 2021-05-29 14:50 | NUR ---
RN NOTES PT APPEARS COMFORTABLE , CONTINUE TO TITRATE MORPHINE DRIP .
[2021-05-29] MEDS ORDERED: DC PROPOFOL WHEN EXTUBATED XX PRN (16:30)
--- NOTE | 2021-05-29 16:40 | NUR ---
RN NOTES PT ON LOOKS COMFORTABLE, ON MORPHINE DRIP AT 15MG/HR , PT EXTUBATED PER MD ORDER . CONTINUE TO PROVIDE COMFORT CARE
--- NOTE | 2021-05-29 17:47 | NUR ---
RN NOTES PT ASYSTOLE ON MONITOR , NO PALPABLE PULSES , NO SPONTANEOUS RESPIRATION , PUPILS FIXED AND NON REACTIVE , PRONOUNCED AT 17:47. NURSING CARDIOLOGY PHYSICIAN AND BRUCE SENIOR DATA SCIENTIST AND ADMITTING AND PT'S SON NOTIFIED .
--- NOTE | 2021-05-29 18:00 | NUR ---
RN NOTES POST MORTEM CARE DONE.
--- NOTE | 2021-05-29 18:45 | NUR ---
RN NOTES BODY SENT TO [facility].
== END 2021-05-29 20:02 | DRG 130 ==
LOC: ER 17:15 → TELE1 23:10 → ICU 05-16 03:48
PROVIDERS: ADMIT Student in an Organized Health Care Education/Training Program; ATTEND Nurse Practitioner Acute Care
PROC: XW033E5 Introduction of Remdesivir Anti-infective into Peripheral Vein, Percutaneous Approach, New Technology Group 5 (ICD-10-PCS; 2021-05-08)
PROC: XW033H5 Introduction of Tocilizumab into Peripheral Vein, Percutaneous Approach, New Technology Group 5 (ICD-10-PCS; 2021-05-10)
PROC: 5A1955Z Respiratory Ventilation, Greater than 96 Consecutive Hours (ICD-10-PCS; principal; 2021-05-16)
PROC: 0BH18EZ Insertion of Endotracheal Airway into Trachea, Via Natural or Artificial Opening Endoscopic (ICD-10-PCS; 2021-05-16)
PROC: 02HV33Z Insertion of Infusion Device into Superior Vena Cava, Percutaneous Approach (ICD-10-PCS; 2021-05-16)
PROC: B548ZZA Ultrasonography of Superior Vena Cava, Guidance (ICD-10-PCS; 2021-05-16)
DX: U07.1 COVID-19 (principal); J12.82 Pneumonia due to coronavirus disease 2019; A41.89 Other specified sepsis; R65.21 Severe sepsis with septic shock; D61.818 Other pancytopenia; L89.156 Pressure-induced deep tissue damage of sacral region; E83.51 Hypocalcemia; D68.59 Other primary thrombophilia; Z51.5 Encounter for palliative care; G45.9 Transient cerebral ischemic attack, unspecified; J96.02 Acute respiratory failure with hypercapnia; J96.01 Acute respiratory failure with hypoxia; D69.6 Thrombocytopenia, unspecified; E87.1 Hypo-osmolality and hyponatremia; E86.0 Dehydration; I10 Essential (primary) hypertension; R29.703 NIHSS score 3; Z86.73 Personal history of transient ischemic attack (TIA), and cerebral infarction without residual deficits; E11.9 Type 2 diabetes mellitus without complications; E78.5 Hyperlipidemia, unspecified; D53.9 Nutritional anemia, unspecified; Z66 Do not resuscitate; N40.0 Benign prostatic hyperplasia without lower urinary tract symptoms; Z79.84 Long term (current) use of oral hypoglycemic drugs; G93.0 Cerebral cysts; R53.1 Weakness; G93.40 Encephalopathy, unspecified
CPT/HCPCS: 31720; 36415; 36569; 36600; 70450-TC; 70496-TC; 70498-TC; 70553-TC; 71045-TC; 76700-TC; 80048-TC; 80061-TC; 80076-TC; 81001; 82728-TC; 82784; 82803-TC; 82962-TC; 83540-TC; 83615-TC; 83735-TC; 84100-TC; 84155; 84165; 84443-TC; 84478-TC; 84484-TC; 85025-TC; 85378-TC; 85610-TC; 85730-TC; 86140-TC; 86225; 86235; 86334; 86431-TC; 86706; 86803; 87040-TC; 87070-TC; 87081-TC; 87086-TC; 87186-TC; 87340; 92526; 92611-TC; 93307-TC; 93970-TC; 94003-TC; 94640-TC; 94760-TC; 94799-TC; 97110-TC; 97116-TC; 97530-TC; A4216; A9575; C9113; C9803; G0378; J0692; J1100; J1200; J1450; J1650; J1815; J2185; J2250; J2270; J2274; J2370; J2920; J3010; J3262; J3490; J7030; J7040; J7050; J7060; Q9967